=== PATIENT | female | born 1950 | race Caucasian/White ===

== ENCOUNTER 2016-09-16 02:42 | Inpatient (IN) | payer OTHER ==
[2016-09-16] VITALS (7 sets, daily range): BP systolic 126–144; BP diastolic 57–73; PULSE 55–92; TEMP 36.6–37.6; O2SAT 94–100; BMI 22.3
[~2016-09-16] VITALS: Ht 160 cm; Wt 55.9 kg
[2016-09-16] MEDS ORDERED: LORAZEPAM 2 MG/ML 1 ML VIAL ONE (03:05)
[2016-09-16 03:14] LABS: URINE APPEARANCE CLEAR (CLEAR); URINE BILIRUBIN NEG (NEG); URINE COLOR YELLOW; URINE NITRITE NEG (NEG); URINE SPECIFIC GRAVITY 1.021 (1.000-1.030); UROBILINOGEN NEG (NEG)
[2016-09-16 03:20] LABS: MANUAL MICROSCOPIC REQUIRED? NO; REVIEW REQ? NO
[2016-09-16 03:30] LABS: BASO % 0.1 %; BASO ABS # 0.01 K/uL (0-0.2); COMPLETE YES; EOS % 0.7 %; IG% 0.2 %; LYMPH % 12.4 %; LYMPH ABS # 1.08 K/uL (1.2-3.4); MEAN CELL VOLUME 88.6 fL (80-100); MEAN CORPUSCULAR HEMOGLOBIN 29.8 pg (25-34); MEAN CORPUSCULAR HGB CONC 33.7 g/dl (32-36); MEAN PLATELET VOLUME 10.1 fL (7.4-10.4); MONO % 5.3 %; NEUT % 81.3 %; PLATELET COUNT 293 K/uL (130-400); RED BLOOD COUNT 4.29 M/uL (4.2-5.4); WHITE BLOOD COUNT 8.72 K/uL (4.8-10.8)
[2016-09-16 03:35] LABS: BENZODIAZEPINE, URINE NEG (NEG); COCAINE,URINE NEG (NEG); PHENCYCLIDINE, URINE NEG (NEG)
--- NOTE | 2016-09-16 03:47 | EMERGENCY ROOM VISIT NOTE ---
History Report prepared by Suha: Piotr Valero Under the Supervision of: Dr. Shavonne Goodman D.O. First contact with patient: 02:54 Chief Complaint: HYPOGLYCEMIA Stated Complaint: HYPOGLYCEMIA/AGITATION History of Present Illness The patient is a 66 year old female who presents to the Emergency Room via EMS with complaints of altered mental status occurring tonight. As per EMS report, the patient's family found her to be hypoglycemic and unresponsive. When her family attempted to talk to her, she became agitated. The patient has a history of becoming agitated when her sugar becomes too low. She was given two 25 mg doses of Dextrose without any changes in her mental status/agitation. Her blood sugar level did improve. In the Emergency Room, her blood sugar level was 116. HPI is limited secondary to altered mental status. As per family, the patent has never before been altered, agitated, and unresponsive for a prolonged period of time. They had called her about 4 hours ago but she seemed altered. They were not sure if she was sleepy or hypoglycemia. They called back but the patient did not shredder picker which prompted the daughter to check up on the patient. Upon arrival, the patient was agitated and hypoglycemic. Source of History: EMS History Limited By: AMS Onset: tonight Position: other (global) Quality: other (altered mental status) Modifying Factors (Relieving): other (Dextrose ) Review of Systems ROS is limited secondary to altered mental status. Past Medical & Surgical Medical Problems: (1) Altered mental status (2) Elevated troponin (3) Hypoglycemia Family History Patient reports no known family medical history. Social History Marital Status: Housing Status: lives with family Current/Historical Medications Unable to Obtain Active Prescriptions or Reported Meds Allergies Coded Allergies: No Known Allergies (Unverified , 09/16/16) Physical Exam Vital Signs Date Time Temp Pulse Resp B/P (MAP) Pulse Ox O2 Delivery O2 Flow Rate FiO2 09/16/16 05:06 70 26 94 09/16/16 05:01 135/60 09/16/16 04:47 70 21 97 09/16/16 04:30 138/73 09/16/16 04:17 77 16 92 09/16/16 04:12 71 23 97 09/16/16 04:00 147/68 09/16/16 03:42 72 17 95 09/16/16 03:37 157/60 09/16/16 03:12 78 22 09/16/16 02:48 86 09/16/16 02:48 176/78 09/16/16 02:45 36.7 80 17 176/78 94 Room Air Physical Exam General: She has significant altered mental status and will not follow commands , agitated at times. HEENT: Head - normocephalic and atraumatic Pupils are 3 mm and sluggishly reactive to light. Extraocular eye muscles are intact, and sclera are anicteric. Nose - moist nasal mucosa without discharge. Mouth - moist buccal mucosa. Oropharynx is nonerythematous and there is no tonsillar exudate or edema noted. Neck: Supple; no JVD, nuchal rigidity, cervical lymphadenopathy, or auscultated bruits. Heart: Regular rate and rhythm. There is a normal S1 and S2 with no murmurs, clicks, or gallops appreciated. Lungs: Clear to auscultation bilaterally with no wheezes, rales, or rhonchi. Abdomen: Lipoma in the left lower quadrant. Soft, completely nontender, nondistended, with good bowel sounds. There are no palpable pulsatile masses or hepatosplenomegaly. There is no guarding, rigidity, or rebound noted. Extremities: No evidence of cyanosis, clubbing, or edema. There are easily palpable peripheral pulses. Skin: warm and dry with good turgor and no rashes. Neuro: The patient is moving all 4 extremities. She will not follow commands. With any type of verbal painful stimuli, the patient becomes quite agitated. She is pulling at IV lines and monitor cords. Medical Decision & Procedures ER Provider Diagnostic Interpretation: CT results as stated below per my review and radiologist interpretation: CT HEAD No ICH, mass effect, or edema. Preserved lane-white matter differentiation. No evidence of skull fracture. Clear sinuses and mastoid air cells. Radiologist: Myla Payan MD Laboratory Results Test 09/16/16 02:58 09/16/16 03:15 Urine Color YELLOW Urine Appearance CLEAR (CLEAR) Urine pH 6.0 (4.5-7.5) Urine Specific [place] 1.021 (1.000-1.030) Urine Protein NEG (NEG) Urine Glucose (UA) 2+ (NEG) Urine Ketones NEG (NEG) Urine Occult Blood NEG (NEG) Urine Nitrite NEG (NEG) Urine Bilirubin NEG (NEG) Urine Urobilinogen NEG (NEG) Urine Leukocyte Esterase NEG (NEG) Urine Opiates Screen NEG (NEG) Urine Methadone, Qualitative NEG (NEG) Urine Barbiturates NEG (NEG) Urine Phencyclidine (PCP) Level NEG (NEG) Ur Amphetamine/Methamphetamine NEG (NEG) MDMA (Ecstasy) Screen NEG (NEG) Urine Benzodiazepines Screen NEG (NEG) Urine Cocaine Metabolite NEG (NEG) Urine Marijuana (THC) NEG (NEG) Total Bilirubin 0.5 mg/dl (0.2-1) Direct Bilirubin 0.1 mg/dl (0-0.2) Aspartate Amino Transf (AST/SGOT) 24 U/L (15-37) Alanine Aminotransferase (ALT/SGPT) 24 U/L (12-78) Alkaline Phosphatase 58 U/L (45-117) Total Creatine Kinase 217 U/L (26-192) Total Protein 6.9 gm/dl (6.4-8.2) Albumin 3.6 gm/dl (3.4-5.0) Thyroid Stimulating Hormone (TSH) 3.190 uIu/ml (0.300-4.500) Salicylates Level < 1.7 mg/dl (2.8-20) Acetaminophen Level 3 ug/ml (10-30) Ethyl Alcohol mg/dL < 3.0 mg/dl (0-3) Laboratory results per my review. Medications Administered Medications (Trade) Dose Ordered Sig/Benny Route Start Time Stop Time Status Last Admin Dose Admin Lorazepam (Ativan Inj) 2 mg STK-MED ONCE .ROUTE 09/16/16 03:05 09/16/16 03:07 DC 09/16/16 03:22 2 MG ECG Indication: altered mental status Rate (beats per minute): 70 Rhythm: normal sinus Findings: no acute ischemic change, no ectopy ED Course 0254: Past medical records reviewed. The patient was evaluated in room B04B. A complete history and physical exam was performed. Laboratory studies were drawn as above. Blood sugar was normal. The patient went for a stat CT scan of the brain. He twelve-lead EKG was obtained as described above. 0355: The patient remains altered. She will not follow commands. 0405: I had an extensive conversation with the patient's family when they arrived. I discussed findings and results with the patient's family. They verbalized agreement of the treatment plan. The patient will be evaluated for further management and care. 0428: I discussed the patient's case with Dr. Segura, from [facility]. Medical Decision The patient presents to the Emergency Room with complaints of altered mental status. Differential diagnosis includes but is not limited to hypoglycemia, alcohol intoxication, intracranial hemorrhage, acute CVA, acute delirium. Her labs showed salicylate 1.7, acetaminophen 3, normal TSH, glucose 137, BUN 323, creatinine 0.8, troponin 0.120, total CK 217, CKMB 4, urinalysis showed 2+ glucose but otherwise negative, urine tox screen negative, alcohol negative. I attest that I have personally reviewed the patient's current medication list. Patient was found to have an elevated blood pressure but I could not refer her to her primary care physician because the patient is obtunded and has an altered mental status. This is a 66 female patient with insulin-dependent diabetes. It seems that the patient had a hypoglycemic episode as her blood sugar for EMS was 35. This episode may have been prolonged. Despite giving her D10, her blood sugar elevated but her mental status did not improve. She remains altered and agitated at times. CT scan of the brain was unremarkable. Laboratory workup was essentially unremarkable with regards to her altered mental status. I discussed the case with the [facility] and they will evaluate for further management. Consults Time Called: [phone] Consulting Physician: Dr. Segura, from [facility] Returned Call: [phone] I discussed the patient's case with Dr. Segura, from [facility][Note 3]. Impression Primary Impression: Altered mental status Scribe Attestation The scribe's documentation has been prepared under my direction and personally reviewed by me in its entirety. I confirm that the note above accurately reflects all work, treatment, procedures, and medical decision making performed by me. Departure Information Dispostion Being Evaluated By Hospitalist Prescriptions Unable to Obtain Active Prescriptions or Reported Meds Patient Instructions My [facility]
[2016-09-16 03:48] LABS: ALT/SGPT 24 U/L (12-78); AST/SGOT 24 U/L (15-37); BLOOD UREA NITROGEN 23 mg/dl (7-18); BUN/CREATININE RATIO 26.5 (10-20); CALCIUM 8.3 mg/dl (8.5-10.1); CARBON DIOXIDE 29 mmol/L (21-32); CHLORIDE 105 mmol/L (98-107); CREATININE 0.88 mg/dl (0.60-1.20); GLUCOSE 137 mg/dl (70-99); POTASSIUM 3.9 mmol/L (3.5-5.1); SODIUM 140 mmol/L (136-145)
[2016-09-16 04:01] LABS: ALKALINE PHOSPHATASE 58 U/L (45-117); CKMB/CK RATIO 1.8 (0-3.0)
[2016-09-16 04:04] LABS: ACETAMINOPHEN 3 ug/ml (10-30)
--- NOTE | 2016-09-16 06:55 | History and Physical ---
History & Physical Date & Time of Service: Sep 16, 2016 at 06:16 Chief Complaint: Altered Mental Status, Elevated Troponin Primary Care Physician: Murray Bustamante M.D. History of Present Illness Source: family, clinic records, hospital records 66 year old female with PMH of Diabetes, hypoglycemic episodes was brought to the Emergency Room via EMS with complaints of altered mental status. Pt followed with Dr. Bustamante in [place]. History obtained from the daughter because of patient altered mental status and agitation. Daughter said that she called her mother to check on her and patient seems to be confused. Daughter said that when her mother confused it is because her BS is low. she said that she came to check on her and found her BS was in the 35's When her family attempted to talk to her, she became agitated.She was given two 25 mg doses of Dextrose without any changes in her mental status/agitation. As per Daughter the changed in mental status and agitation never lasted for so long. Daughter said that her mother usually back to her baseline once her BS improved. Doesn't seem to have any chest pain, palpitation, fever, pain, and SOB. Past Medical/Surgical History Medical Problems: (1) Hypoglycemia Status: Resolved Family History Patient reports no known family medical history. Social History Smoking Status: Unknown if Ever Smoked Marital Status: Allergies Coded Allergies: No Known Allergies (Unverified , 09/16/16) Home Medications Unable to Obtain Active Prescriptions or Reported Meds Review of Systems Limited review system ( Info obtained from daughter) Constitutional: No fever, No chills Eyes: No worsening of vision, No redness, No discharge ENT: No nasal symptoms, No tinnitus Respiratory: No cough, No sputum Cardiovascular: No chest pain, No orthopnea, No claudication Abdomen: No pain, No nausea Musculoskeletal: No calf pain Genitourinary - Female: No dysuria, No urinary frequency Neurologic: + problem reported (agitation) Psychiatric: No substance abuse Hematologic / Lymphatic: No night sweats Integumentary: No rash Physical Exam Vital Signs Date Time Temp Pulse Resp B/P (MAP) Pulse Ox O2 Delivery O2 Flow Rate FiO2 09/16/16 05:36 75 20 95 09/16/16 05:30 129/59 09/16/16 05:06 70 26 94 09/16/16 05:01 135/60 09/16/16 04:47 70 21 97 09/16/16 04:30 138/73 09/16/16 04:17 77 16 92 09/16/16 04:12 71 23 97 09/16/16 04:00 147/68 09/16/16 03:42 72 17 95 09/16/16 03:37 157/60 09/16/16 03:12 78 22 09/16/16 02:48 86 09/16/16 02:48 176/78 09/16/16 02:45 36.7 80 17 176/78 94 Room Air General Appearance: WD/WN, + pertinent finding (altered mental status and agitation) Head: normocephalic, atraumatic Eyes: normal inspection ENT: hearing grossly normal Neck: no JVD Respiratory/Chest: no respiratory distress, no accessory muscle use Cardiovascular: regular rate, rhythm, no JVD Abdomen/GI: normal bowel sounds, non tender, soft Back: no CVA tenderness Extremities/Musculoskelatal: no calf tenderness, no pedal edema Neurologic/Psych: + pertinent finding (confused, agitated, moves all 4 extremities) Skin: no rash Diagnostics Laboratory Results Results Past 24 Hours Test 09/16/16 02:51 09/16/16 02:58 09/16/16 03:09 09/16/16 03:15 Range/Units Bedside Glucose 116 119 70-90 mg/dl Urine Color YELLOW Urine Appearance CLEAR CLEAR Urine pH 6.0 4.5-7.5 Urine Specific [place] 1.021 1.000-1.030 Urine Protein NEG NEG Urine Glucose (UA) 2+ NEG Urine Ketones NEG NEG Urine Occult Blood NEG NEG Urine Nitrite NEG NEG Urine Bilirubin NEG NEG Urine Urobilinogen NEG NEG Urine Leukocyte Esterase NEG NEG Urine Opiates Screen NEG NEG Urine Methadone, Qualitative NEG NEG Urine Barbiturates NEG NEG Urine Phencyclidine (PCP) Level NEG NEG Ur Amphetamine/Methamphetamine NEG NEG MDMA (Ecstasy) Screen NEG NEG Urine Benzodiazepines Screen NEG NEG Urine Cocaine Metabolite NEG NEG Urine Marijuana (THC) NEG NEG White Blood Count 8.72 4.8-10.8 K/uL Red Blood Count 4.29 4.2-5.4 M/uL Hemoglobin 12.8 12.0-16.0 g/dL Hematocrit 38.0 37-47 % Mean Corpuscular Volume 88.6 80-100 fL Mean Corpuscular Hemoglobin 29.8 25-34 pg Mean Corpuscular Hemoglobin Concent 33.7 32-36 g/dl Platelet Count 293 130-400 K/uL Mean Platelet Volume 10.1 7.4-10.4 fL Neutrophils (%) (Auto) 81.3 % Lymphocytes (%) (Auto) 12.4 % Monocytes (%) (Auto) 5.3 % Eosinophils (%) (Auto) 0.7 % Basophils (%) (Auto) 0.1 % Neutrophils # (Auto) 7.09 1.4-6.5 K/uL Lymphocytes # (Auto) 1.08 1.2-3.4 K/uL Monocytes # (Auto) 0.46 0.11-0.59 K/uL Eosinophils # (Auto) 0.06 0-0.5 K/uL Basophils # (Auto) 0.01 0-0.2 K/uL RDW Standard Deviation 43.1 36.4-46.3 fL RDW Coefficient of Variation 13.4 11.5-14.5 % Immature Granulocyte % (Auto) 0.2 % Immature Granulocyte # (Auto) 0.02 0.00-0.02 K/uL Sodium Level 140 136-145 mmol/L Potassium Level 3.9 3.5-5.1 mmol/L Chloride Level 105 98-107 mmol/L Carbon Dioxide Level 29 21-32 mmol/L Anion Gap 6.0 3-11 mmol/L Blood Urea Nitrogen 23 7-18 mg/dl Creatinine 0.88 0.60-1.20 mg/dl Estimated GFR () 80.5 Estimated GFR (Non- 69.4 BUN/Creatinine Ratio 26.5 10-20 Random Glucose 137 70-99 mg/dl Calcium Level 8.3 8.5-10.1 mg/dl Total Bilirubin 0.5 0.2-1 mg/dl Direct Bilirubin 0.1 0-0.2 mg/dl Aspartate Amino Transf (AST/SGOT) 24 15-37 U/L Alanine Aminotransferase (ALT/SGPT) 24 12-78 U/L Alkaline Phosphatase 58 45-117 U/L Total Creatine Kinase 217 26-192 U/L Creatine Kinase MB 4.0 0.5-3.6 ng/ml Creatine Kinase MB Ratio 1.8 0-3.0 Troponin I 0.120 0-0.045 ng/ml Total Protein 6.9 6.4-8.2 gm/dl Albumin 3.6 3.4-5.0 gm/dl Thyroid Stimulating Hormone (TSH) 3.190 0.300-4.500 uIu/ml Salicylates Level < 1.7 2.8-20 mg/dl Acetaminophen Level 3 10-30 ug/ml Ethyl Alcohol mg/dL < 3.0 0-3 mg/dl Test 09/16/16 04:07 09/16/16 05:39 Range/Units Bedside Glucose 135 194 70-90 mg/dl Diagnostic Radiology CT head showed no acute abnormality, mass effect, or edema. Preserved lane- white matter differentiation. No evidence of skull fracture. Clear sinuses and mastoid air cells. Impression Assessment and Plan Altered Mental Status/ Agitation Possible related to Hypoglycemia vs delirium CT head negative for any intracranial hemorrhage Will do neuro check Will avoid Benzo for now Consider Haldol if symptoms worsening fall precaution Hypoglycemia BS improved Continue monitor BS closely If BS drops, will start on gentle D5 water Elevated troponin Denies any chest pain as per Daughter troponin on admission 0.120 EKK showed no ischemic changes will follow serial CM Cardiology consult if troponin trending up or any change on EKG Will monitor in telemetry DM Hold DM med will consult pharmacy for glycemic episodes will repeat EKG DVT px on Lovenox subq CODE STATUS FULL CODE DISPOSITION Call pharmacy or pcp in am to get his medication list Level of Care Telemetry Resuscitation Status FULL RESUSCITATION VTE Prophylaxis VTE Risk Assessment Done? Y/N: Yes Risk Level: Moderate Given or contraindicated: Enoxaparin (Lovenox)SQ
[2016-09-16] MEDS ORDERED: GLUCOSE 10 TABS/TUBE PO PRN (07:00)
[2016-09-16] MEDS ORDERED: DEXTROSE 50% 50 ML SYR IV PRN (07:00)
[2016-09-16] MEDS ORDERED: GLUCAGON FOR INJ 1 MG VIAL SQ PRN (07:00)
[2016-09-16] MEDS ORDERED: GLUCOSE 40% GEL 15 GM TUBE PO PRN (07:00)
[2016-09-16] MEDS ORDERED: SODIUM CHLORIDE 0.9% 1000ML 1,000 ML IV SCH (07:00)
[2016-09-16] MEDS ORDERED: PHARMACY GLYCEMIC MGMT CONSULT PRN (07:00)
--- NOTE | 2016-09-16 07:04 | DIAGNOSTIC IMAGING REPORT ---
CT SCAN OF THE BRAIN WITHOUT IV CONTRAST CLINICAL HISTORY: Change in mental status. COMPARISON STUDY: No priors. TECHNIQUE: Unenhanced axial CT scan of the brain is performed from the vertex to the skull base. CT DOSE: 1228.53 mGy.cm FINDINGS: Brain parenchyma: There are age-related involutional changes noting minimal subcortical and periventricular microangiopathic change. There is no hemorrhage, mass effect, or evidence of acute territorial ischemia by CT criteria. Vel[place]-white matter is preserved. No extra-axial fluid collection is seen. Ventricles, sulci, cisterns: Prominent secondary to involutional change. Intracranial vasculature: Normal as visualized. Calvarium: Unremarkable. Sinuses and mastoids: The visualized paranasal sinuses are clear. The mastoid air cells are well pneumatized. Orbits: The bony orbits are grossly intact. IMPRESSION: There is no hemorrhage, mass effect, or evidence of acute territorial ischemia by CT criteria. Electronically signed by: Jean-iPerre Maynard M.D. 09/16/2016 7:03 AM Dictated Date/Time: 09/16/2016 7:01 AM
[2016-09-16] MEDS ORDERED: PATIENT'S ALLERGY INFO NEEDS ENTERED SCH (07:15)
[2016-09-16] MEDS ORDERED: HALOPERIDOL LACTATE 5 MG/ML 1 ML VIAL IM STA ×2 (07:29→12:09)
[2016-09-16] MEDS ORDERED: HALOPERIDOL LACTATE 5 MG/ML 1 ML VIAL ONE (07:32)
[2016-09-16 07:43] LABS: PARTIAL THROMBOPLASTIN RATIO 0.9; PROTHROMBIN TIME (PATIENT) 10.7 SECONDS (9.0-12.0)
--- NOTE | 2016-09-16 08:40 | Progress Note ---
Medicine Progress Note Date & Time of Visit: Sep 16, 2016 at 08:29. Subjective history obtained from patient's daughter Sandra as patient was disoriented, confused she does not have complete past medical history or medication list, records being obtained from PCP and [facility] as far as Sandra knows, patient has DM, HTN, non obstructive CAD and takes Insulin she has episodes of confusion with hypoglycemia, but not this severe and prolonged no history of seizure, mood disorders RN Hammad messaged me as patient was thrashing around the bed, agitated Haldol 5mg IV ordered on exam, patient seen sleeping ,easily rousable, mostly calm but occasional would try to sit up asking "where am I? what's going on?" can state her name with prodding otherwise, disoriented denies headache, dizziness, nausea, chest pain, dyspnea, abdominal pain, changes with urination/BM Objective Last 8 Hrs Date Time Temp Pulse Resp B/P (MAP) Pulse Ox O2 Delivery O2 Flow Rate FiO2 09/16/16 06:32 36.9 77 16 133/57 94 Room Air 09/16/16 05:36 75 20 95 09/16/16 05:30 129/59 09/16/16 05:06 70 26 94 09/16/16 05:01 135/60 09/16/16 04:47 70 21 97 09/16/16 04:30 138/73 09/16/16 04:17 77 16 92 09/16/16 04:12 71 23 97 09/16/16 04:00 147/68 09/16/16 03:42 72 17 95 09/16/16 03:37 157/60 09/16/16 03:12 78 22 09/16/16 02:48 86 09/16/16 02:48 176/78 09/16/16 02:45 36.7 80 17 176/78 94 Room Air Physical Exam: General- not oriented, speaks in sentences with no effort, not in distress Head- atraumatic Eyes- PERRL, EOMI, anicteric Neck- supple, no JVD, no adenopathy, no thyromegaly Lungs- clear breath sounds bilaterally Heart- regular rhythm; no murmur, normal rate Abdomen- normal bowel sounds, soft, nontender Extremities- no pretibial edema, no calf tenderness; peripheral pulses intact Neuro- alert, not oriented; PERRL, EOMI; no facial palsy; no dysarthria;can move all extremities equally Skin- warm & dry Laboratory Results: Last 24 Hours Test 09/16/16 02:51 09/16/16 02:58 09/16/16 03:09 09/16/16 03:15 Bedside Glucose 116 mg/dl 119 mg/dl Urine Color YELLOW Urine Appearance CLEAR Urine pH 6.0 Urine Specific [place] 1.021 Urine Protein NEG Urine Glucose (UA) 2+ Urine Ketones NEG Urine Occult Blood NEG Urine Nitrite NEG Urine Bilirubin NEG Urine Urobilinogen NEG Urine Leukocyte Esterase NEG Urine Opiates Screen NEG Urine Methadone, Qualitative NEG Urine Barbiturates NEG Urine Phencyclidine (PCP) Level NEG Ur Amphetamine/Methamphetamine NEG MDMA (Ecstasy) Screen NEG Urine Benzodiazepines Screen NEG Urine Cocaine Metabolite NEG Urine Marijuana (THC) NEG White Blood Count 8.72 K/uL Red Blood Count 4.29 M/uL Hemoglobin 12.8 g/dL Hematocrit 38.0 % Mean Corpuscular Volume 88.6 fL Mean Corpuscular Hemoglobin 29.8 pg Mean Corpuscular Hemoglobin Concent 33.7 g/dl Platelet Count 293 K/uL Mean Platelet Volume 10.1 fL Neutrophils (%) (Auto) 81.3 % Lymphocytes (%) (Auto) 12.4 % Monocytes (%) (Auto) 5.3 % Eosinophils (%) (Auto) 0.7 % Basophils (%) (Auto) 0.1 % Neutrophils # (Auto) 7.09 K/uL Lymphocytes # (Auto) 1.08 K/uL Monocytes # (Auto) 0.46 K/uL Eosinophils # (Auto) 0.06 K/uL Basophils # (Auto) 0.01 K/uL RDW Standard Deviation 43.1 fL RDW Coefficient of Variation 13.4 % Immature Granulocyte % (Auto) 0.2 % Immature Granulocyte # (Auto) 0.02 K/uL Sodium Level 140 mmol/L Potassium Level 3.9 mmol/L Chloride Level 105 mmol/L Carbon Dioxide Level 29 mmol/L Anion Gap 6.0 mmol/L Blood Urea Nitrogen 23 mg/dl Creatinine 0.88 mg/dl Estimated GFR () 80.5 Estimated GFR (Non- 69.4 BUN/Creatinine Ratio 26.5 Random Glucose 137 mg/dl Calcium Level 8.3 mg/dl Total Bilirubin 0.5 mg/dl Direct Bilirubin 0.1 mg/dl Aspartate Amino Transf (AST/SGOT) 24 U/L Alanine Aminotransferase (ALT/SGPT) 24 U/L Alkaline Phosphatase 58 U/L Total Creatine Kinase 217 U/L Creatine Kinase MB 4.0 ng/ml Creatine Kinase MB Ratio 1.8 Troponin I 0.120 ng/ml Total Protein 6.9 gm/dl Albumin 3.6 gm/dl Thyroid Stimulating Hormone (TSH) 3.190 uIu/ml Salicylates Level < 1.7 mg/dl Acetaminophen Level 3 ug/ml Ethyl Alcohol mg/dL < 3.0 mg/dl Test 09/16/16 04:07 09/16/16 05:39 09/16/16 06:21 09/16/16 06:49 Bedside Glucose 135 mg/dl 194 mg/dl 222 mg/dl Creatine Kinase MB Ratio Test 09/16/16 07:12 09/16/16 07:52 09/16/16 08:06 Prothrombin Time 10.7 SECONDS Prothromb Time International Ratio 1.0 Activated Partial Thromboplast Time 24.1 SECONDS Partial Thromboplastin Ratio 0.9 Creatine Kinase MB 3.4 ng/ml Bedside Glucose 188 mg/dl Date/Time Source Procedure Growth Status 09/16/16 07:52 Blood Blood Culture Pending Francisca Batch 09/16/16 07:52 Blood Blood Culture Pending Francisca Batch Assessment & Plan 66 year old female with history of DM on insulin, hypertension,CAD presenting with altered mental status and hypoglycemia ALTERED MENTAL STATUS, POSSIBLE ENCEPHALOPATHY FROM: ACUTE DELIRIUM in the setting of hypoglycemia PRN Haldol, IV fluids Neurochecks R/O INFECTION blood, urine cultures no fever, WBC, UA clean hold off on antibiotics POSSIBLE POST ICTAL EPISODE FROM HYPOGLYCEMIA INDUCED SEIZURE? check EEG R/O CVA check MRI brain will consult Neuro ELEVATED CARDIAC MARKERS non obstructive CAD per daughter, s/p Cardiac Cath 2014 EKG non specific t wave changes in anteroseptal leads check Echo DM on Insulin Pharmacy consulted HISTORY OF HTN obtaining records from PCP and [facility] DVT PROPHYLAXIS SCDs Lovenox CODE STATUS FULL CODE DISPOSITION pending usually lives with Current Inpatient Medications: Current Inpatient Medications Medications (Trade) Dose Ordered Sig/Benny Route Start Time Stop Time Status Last Admin Dose Admin Enoxaparin Sodium (Lovenox Inj) 40 mg Q24H SC 09/16/16 05:15 10/16/16 05:14 UNV Sodium Chloride 1,000 ml @ 100 mls/hr Q10H IV 09/16/16 07:00 09/16/16 16:59 Insulin Aspart (novoLOG ASPART) SLIDING SCALE If C... ACHS SC 09/16/16 07:00 10/16/16 06:59 Glucose (Glucose 40% Gel) 15-30 GRAMS 15 GRAMS... UD PRN PO 09/16/16 07:00 10/16/16 06:59 Glucose (Glucose Chew Tab) 4-8 Tablets 4 Tabl... UD PRN PO 09/16/16 07:00 10/16/16 06:59 Dextrose (Dextrose 50% 50ML Syringe) 25-50ML OF 50% DW IV FOR... UD PRN IV 09/16/16 07:00 10/16/16 06:59 Glucagon (Glucagon Inj) 1 mg UD PRN SQ 09/16/16 07:00 10/16/16 06:59 Miscellaneous Information (Consult Glycemic Management Pharmacy) 1 ea UD PRN N/A 09/16/16 07:00 10/16/16 06:59 Miscellaneous Information (Patient'S Allergy Info Needs Entered) 1 ea Q30M N/A 09/16/16 07:15 10/16/16 07:14
[2016-09-16] MEDS ORDERED: PNEUMOCOCCAL ADMINISTRATION CHARGE ONE (09:00)
[2016-09-16] MEDS ORDERED: PNEUMOCOCCAL POLYSACCHARIDES 25 MCG/0.5 ML VIAL/SYR IM. ONE (09:00)
[2016-09-16] MEDS: INSULIN ASPART 100 UNITS/ML 3 ML PEN SC SCH ×3 (09:30→20:44)
--- NOTE | 2016-09-16 09:44 | Pharmacy Progress Note ---
Glycemic Control Intl Consult Date of Service Sep 16, 2016. Scope Glycemic Pharmacist consulted by Dr. Segura on 09/16/16 for glycemic control and to write orders per [facility] inpatient glycemic control protocol Objective Weight (Kilograms): 57.200 Accuchecks BSG (last 24hrs): Test 09/16/16 02:51 09/16/16 03:09 09/16/16 03:15 09/16/16 04:07 Bedside Glucose 116 mg/dl (70-90) 119 mg/dl (70-90) 135 mg/dl (70-90) Random Glucose 137 mg/dl (70-99) Test 09/16/16 05:39 09/16/16 06:21 09/16/16 08:06 Bedside Glucose 194 mg/dl (70-90) 222 mg/dl (70-90) 188 mg/dl (70-90) Laboratory Data (last 24hrs) Test 09/16/16 03:15 Anion Gap 6.0 mmol/L BUN/Creatinine Ratio 26.5 Blood Urea Nitrogen 23 mg/dl Creatinine 0.88 mg/dl Potassium Level 3.9 mmol/L Sodium Level 140 mmol/L White Blood Count 8.72 K/uL Red Blood Count 4.29 M/uL Hemoglobin 12.8 g/dL Hematocrit 38.0 % Mean Corpuscular Volume 88.6 fL Mean Corpuscular Hemoglobin 29.8 pg Mean Corpuscular Hemoglobin Concent 33.7 g/dl Platelet Count 293 K/uL Mean Platelet Volume 10.1 fL Neutrophils (%) (Auto) 81.3 % Lymphocytes (%) (Auto) 12.4 % Monocytes (%) (Auto) 5.3 % Eosinophils (%) (Auto) 0.7 % Basophils (%) (Auto) 0.1 % Neutrophils # (Auto) 7.09 K/uL Lymphocytes # (Auto) 1.08 K/uL Monocytes # (Auto) 0.46 K/uL Eosinophils # (Auto) 0.06 K/uL Basophils # (Auto) 0.01 K/uL Recent Pertinent Medications Outpatient Anti-diabetic Regimen: * Patient and family unable to report home insulin doses. The following doses were found via Dr. Null and may not be up to date. * Lantus 6 units qam, 5 units qpm * Humalog 5 units with breakfast, 4 units with lunch, 5 units with dinner * A1c - ordered for 09/17/16 Risk Factors for Insulin Resistance: * unknown at this time Assessment & Plan ASSESSMENT: * 66 yr old diabetic female admitted with AMS, possible encephalopathy (r/o CVA vs. r/o infection vs. acute delirium vs. hypoglycemic induced seizure). * Outpatient glycemic control is unknown at this time. Patient is unable to report home medications and doses. I attempted to contact patient's but was unable to reach him. I was able to reach her daughter, Grazyna, but she was unable to provide any additional information regarding home insulin doses. I did request that she contact the pharmacy if she is able to obtain patient's medications. According to Dr. Null, the patient uses ~25 units of insulin per day (note - dosing info may not be accurate). * Will be conservative with basal insulin d/t unknown needs at this time, NPO status, lack of risk factors for insulin resistance, and mention of recent hypoglycemic events in H&P * Will start patient on correctional insulin with Novolog - based dose on weight and stress of 2. * ADA & AACE recommend a goal blood sugar range 140-180 mg/dl for the majority of critically ill & non-critically ill patients. However, more stringent targets may be selected in individual cases. PLAN FOR INPATIENT GLYCEMIC CONTROL: * Basal insulin -Lantus per scale BID * 0 units if BSG is less than 120 mg/dL * 5 units if BSG is 120 mg/dL or more * Correctional Insulin with NOVOLOG per scale Q6hrs while NPO * Goal Range: Low 140 mg/dL - High 180 mg/dL * Correction Factor: 40 mg/dL/unit * Nutritional / Prandial insulin per carb ratio of 1 unit per 14 grams CHO consumed * Please note that the plan above was derived based on current level of insulin resistance and hospital stress. These recommendations are appropriate for inpatient admission only. Plan of care upon discharge will need to be reassessed to avoid potential outpatient hypo/hyperglycemia. Thank you.
[2016-09-16] MEDS ORDERED: LORAZEPAM 2 MG/ML 1 ML VIAL IV PRN (11:15)
[2016-09-16] MEDS: ENOXAPARIN 40 MG/0.4 ML SYR SC SCH (11:32)
[2016-09-16] MEDS ORDERED: INSULIN GLARGINE SOLOSTAR 100 UNITS/ML 3 ML PEN SC ONE (12:30)
--- NOTE | 2016-09-16 14:04 | DIAGNOSTIC IMAGING REPORT ---
ORBIT RADIOGRAPHS 2 VIEWS HISTORY: pre-MRI screening. COMPARISON: None. FINDINGS: There are no radiopaque foreign bodies identified within the orbits. IMPRESSION: No radiopaque foreign bodies identified within the orbits. Electronically signed by: Madan Orozco M.D. 09/16/2016 2:03 PM Dictated Date/Time: 09/16/2016 2:02 PM
--- NOTE | 2016-09-16 15:49 | Neurology Consultation ---
Neurology Consultation Date of Consultation: Sep 16, 2016. Attending Physician: Jose D Chávez MD Primary Care Physician: Murray Bustamante M.D. Reason for Consultation: mental status change History of Present Illness Source: patient, family Linda is a 66 year old female with PMH of DM, with hypoglycemic episodes, HTN, hypothyroid, DL, osteoporosis. She was brought to the ED EMS with complaints of altered mental status. Daughter said that she called her mother to check on her and patient seems to be confused. Daughter said that when her mother confused it is because her BS is low. she said that she came to check on her and found her BS was in the 35's When her family attempted to talk to her, she became agitated.She was given two 25 mg doses of Dextrose without any changes in her mental status/agitation. As per Daughter the changed in mental status and agitation never lasted for so long. Daughter said that her mother usually back to her baseline once her BS improved. She was sent down for an MRI but was unable to hold still for the imaging. She is currently thrashing in bed and minimally cooperative. when asked if she has pain she states no. Past Medical/Surgical History Medical Problems: (1) Acute delirium Status: Acute Social History Marital Status: Housing Status: lives with family Allergies Coded Allergies: No Known Allergies (Unverified , 09/16/16) Current Inpatient Medications Current Inpatient Medications Medications (Trade) Dose Ordered Sig/Benny Route Start Time Stop Time Status Last Admin Dose Admin Enoxaparin Sodium (Lovenox Inj) 40 mg QAM SC 09/16/16 09:30 10/16/16 09:29 09/16/16 11:32 40 MG Sodium Chloride 1,000 ml @ 100 mls/hr Q10H IV 09/16/16 07:00 09/16/16 16:59 09/16/16 07:33 100 MLS/HR Insulin Aspart (novoLOG ASPART) SLIDING SCALE If C... ACHS SC 09/16/16 07:00 10/16/16 06:59 09/16/16 11:37 1 UNITS Glucose (Glucose 40% Gel) 15-30 GRAMS 15 GRAMS... UD PRN PO 09/16/16 07:00 10/16/16 06:59 Glucose (Glucose Chew Tab) 4-8 Tablets 4 Tabl... UD PRN PO 09/16/16 07:00 10/16/16 06:59 Dextrose (Dextrose 50% 50ML Syringe) 25-50ML OF 50% DW IV FOR... UD PRN IV 09/16/16 07:00 10/16/16 06:59 Glucagon (Glucagon Inj) 1 mg UD PRN SQ 09/16/16 07:00 10/16/16 06:59 Miscellaneous Information (Consult Glycemic Management Pharmacy) 1 ea UD PRN N/A 09/16/16 07:00 10/16/16 06:59 Miscellaneous Information (Patient'S Allergy Info Needs Entered) 1 ea Q30M N/A 09/16/16 07:15 10/16/16 07:14 Lorazepam (Ativan Inj) 0.5 mg DAILY PRN IV 09/16/16 11:15 09/18/16 11:14 09/16/16 11:22 0.5 MG Insulin Glargine (Lantus Solostar Pen) SEE PROTOCOL TEXT ... BID SC 09/16/16 21:00 10/16/16 20:59 Physical Exam Vital Signs (Past 24 Hrs): Date Time Temp Pulse Resp B/P (MAP) Pulse Ox O2 Delivery O2 Flow Rate FiO2 09/16/16 12:00 Room Air 09/16/16 10:59 37.4 55 14 144/73 (96) 97 Room Air 09/16/16 08:00 Room Air 09/16/16 06:32 36.9 77 16 133/57 94 Room Air 09/16/16 05:36 75 20 95 09/16/16 05:30 129/59 09/16/16 05:06 70 26 94 09/16/16 05:01 135/60 09/16/16 04:47 70 21 97 09/16/16 04:30 138/73 09/16/16 04:17 77 16 92 09/16/16 04:12 71 23 97 09/16/16 04:00 147/68 09/16/16 03:42 72 17 95 09/16/16 03:37 157/60 09/16/16 03:12 78 22 09/16/16 02:48 86 09/16/16 02:48 176/78 09/16/16 02:45 36.7 80 17 176/78 94 Room Air Physical Exam: Constitutional: appearance nourished thin pale Ears, Nose, Mouth and Throat: mucous membranes moist, no injection and skin normal, eyes normal Cardiovascular: normal S-1 and S-2 and regular rate and rhythm Respiratory: clear to auscultation (CTA) and no rales, rhonchi or wheeze Musculoskeletal: no peripheral edema and good distal pulses Skin: no stigmata of neurocutaneous disease noted and normal and intact Eyes: pupils equal, round and reactive to light (PERRL) NEUROLOGIC EXAMINATION: Mental status: lethargic Oriented to person Speech clear but minimally verbal Cranial Nerves unable to assess Reflexes: Deep tendon reflexes were symmetrical and graded 2/5. Plantar responses were flexor. Gait/Stance: Posture lying in bed thrashing . Strength: biceps triceps hand neck band maker 5/5 bilaterally, hip flex ext 5/5 Laboratory Results Past 24 Hours: 09/16/16 03:15 Red Blood Count 4.29, Mean Corpuscular Volume 88.6, Mean Corpuscular Hemoglobin 29.8, Mean Corpuscular Hemoglobin Concent 33.7, Mean Platelet Volume 10.1, Neutrophils (%) (Auto) 81.3, Lymphocytes (%) (Auto) 12.4, Monocytes (%) (Auto) 5.3, Eosinophils (%) (Auto) 0.7, Basophils (%) (Auto) 0.1, Neutrophils # (Auto) 7.09, Lymphocytes # (Auto) 1.08, Monocytes # (Auto) 0.46, Eosinophils # (Auto) 0.06, Basophils # (Auto) 0.01 09/16/16 03:15 Test 09/16/16 02:58 09/16/16 03:15 09/16/16 07:12 09/16/16 08:56 Urine Color YELLOW Urine Appearance CLEAR (CLEAR) Urine pH 6.0 (4.5-7.5) Urine Specific Nelson 1.021 (1.000-1.030) Urine Protein NEG (NEG) Urine Glucose (UA) 2+ (NEG) Urine Ketones NEG (NEG) Urine Occult Blood NEG (NEG) Urine Nitrite NEG (NEG) Urine Bilirubin NEG (NEG) Urine Urobilinogen NEG (NEG) Urine Leukocyte Esterase NEG (NEG) Urine Opiates Screen NEG (NEG) Urine Methadone, Qualitative NEG (NEG) Urine Barbiturates NEG (NEG) Urine Phencyclidine (PCP) Level NEG (NEG) Ur Amphetamine/Methamphetamine NEG (NEG) MDMA (Ecstasy) Screen NEG (NEG) Urine Benzodiazepines Screen NEG (NEG) Urine Cocaine Metabolite NEG (NEG) Urine Marijuana (THC) NEG (NEG) White Blood Count 8.72 K/uL (4.8-10.8) Red Blood Count 4.29 M/uL (4.2-5.4) Hemoglobin 12.8 g/dL (12.0-16.0) Hematocrit 38.0 % (37-47) Mean Corpuscular Volume 88.6 fL (80-100) Mean Corpuscular Hemoglobin 29.8 pg (25-34) Mean Corpuscular Hemoglobin Concent 33.7 g/dl (32-36) Platelet Count 293 K/uL (130-400) Mean Platelet Volume 10.1 fL (7.4-10.4) Neutrophils (%) (Auto) 81.3 % Lymphocytes (%) (Auto) 12.4 % Monocytes (%) (Auto) 5.3 % Eosinophils (%) (Auto) 0.7 % Basophils (%) (Auto) 0.1 % Neutrophils # (Auto) 7.09 K/uL (1.4-6.5) Lymphocytes # (Auto) 1.08 K/uL (1.2-3.4) Monocytes # (Auto) 0.46 K/uL (0.11-0.59) Eosinophils # (Auto) 0.06 K/uL (0-0.5) Basophils # (Auto) 0.01 K/uL (0-0.2) RDW Standard Deviation 43.1 fL (36.4-46.3) RDW Coefficient of Variation 13.4 % (11.5-14.5) Immature Granulocyte % (Auto) 0.2 % Immature Granulocyte # (Auto) 0.02 K/uL (0.00-0.02) Anion Gap 6.0 mmol/L (3-11) Estimated GFR () 80.5 Estimated GFR (Non- 69.4 BUN/Creatinine Ratio 26.5 (10-20) Calcium Level 8.3 mg/dl (8.5-10.1) Total Bilirubin 0.5 mg/dl (0.2-1) Direct Bilirubin 0.1 mg/dl (0-0.2) Aspartate Amino Transf (AST/SGOT) 24 U/L (15-37) Alanine Aminotransferase (ALT/SGPT) 24 U/L (12-78) Alkaline Phosphatase 58 U/L (45-117) Total Creatine Kinase 217 U/L (26-192) Total Protein 6.9 gm/dl (6.4-8.2) Albumin 3.6 gm/dl (3.4-5.0) Thyroid Stimulating Hormone (TSH) 3.190 uIu/ml (0.300-4.500) Salicylates Level < 1.7 mg/dl (2.8-20) Acetaminophen Level 3 ug/ml (10-30) Ethyl Alcohol mg/dL < 3.0 mg/dl (0-3) Prothrombin Time 10.7 SECONDS (9.0-12.0) Prothromb Time International Ratio 1.0 (0.9-1.1) Activated Partial Thromboplast Time 24.1 SECONDS (21.0-31.0) Partial Thromboplastin Ratio 0.9 Ammonia 12.0 umol/L (11-32) Creatine Kinase MB 5.3 ng/ml (0.5-3.6) Creatine Kinase MB Ratio (0-3.0) Test 09/16/16 11:35 09/16/16 15:13 Bedside Glucose 211 mg/dl (70-90) Imaging CT head- There is no hemorrhage, mass effect, or evidence of acute territorial ischemia by CT criteria. Impression 66 year old with acute confusion Plan 1. work up started for infectious etiology 2. MRI with and without contrast r/o stroke or other structure lesions- unable to tolerate 3. continue glucose control and HTN- this is likely a prolonged hypoglycemic event 4. keep NPO until able to cooperate 5. if source is not found would do an LP 6. family information is very helpful 7. if not waking tomorrow repeat CT head I have seen and discussed above patient with Dr Karla Chiu, neurology Pt seen and examined. Discussed with daughter. 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 Pt lives alone during the week with frequent checks from her daughter. When pt spoke to her at 1030pm daughter thought she might be hypoglycemic, but then thought mother tired. Called her 1 hour later, no answer. Pt found in bed, diaphoretic, unresponsive, breathing deeply, as she has typically looked with hypoglycemia. Her BS was 37, glucose was not administered as pt was not awake enough to take by mouth. Pt did not respond with return of consciousness inspite of tx by EMT. She remains uncharacteristically agitated, confused. CT, labs reviewed. Troponin elevated. Pt has been sedated with haldol and benzos for agitation and pre-MRI sedation. MRI was not able to be completed. Pt BS was prior to my exam but with tx was approx 140 . Pt sleepy alternating with agitated. Able to state name, otherwise unable to follow commands. Head NCAT, edentulous, neck supple. NO spinal trauma or deformity. Perrl, unable to vis optic nerves secondary to noncoop. Perhaps mild dec L NLF. Moves all fours symmetrically, with nl tones. Symmetric reflexes , toes down. Imp: Global encephalopathy with essentially non-focal exam. Most likely represents the effect of protracted hypoglycemia. EEG no evidence of sz. NO evidence of infection and suddenness of onset argues against an infectious etiology. P Attempt MRI, (eval for stroke) if unable and pt not improving in am would do a CT head. SYD Chiu MD
[2016-09-16] MEDS ORDERED: NURSING VERBAL MED ORDER ONE (18:15)
[2016-09-16] MEDS: D5NSS + 20MEQ KCL 1,000 ML IV SCH (19:07)
[2016-09-16] MEDS: INSULIN GLARGINE SOLOSTAR 100 UNITS/ML 3 ML PEN SC SCH (20:45)
--- NOTE | 2016-09-16 21:38 | ELECTROENCEPHALOGRAPH REPORT ---
REFERRING PHYSICIAN: Dr. Jose D Chávez. CLINICAL DIAGNOSIS: Change in mental status, question non-convulsive seizures. EEG DIAGNOSIS: Somewhat technically limited study due to muscle movement artifact, but grossly normal during brief duration of wakefulness. DESCRIPTION OF TRACING: This EEG was done as a bedside recording on a patient who by video analysis had almost continuous head and upper body movements. Despite this, there are relatively few significant muscle or movement artifacts on the EEG. No activation procedures were utilized and drowsiness and light sleep are not clearly evident. Under these conditions, there is evidence for a background rhythm in the alpha range of about 10 Hz of maximum frequency and 30 microvolts of maximum amplitude. This is maximum in posterior head regions and bilaterally symmetrical. Polymorphic mid-slightly lower frequency theta activity of modest voltage is seen over all head regions without clear focal or regional predominance. Anterior head region maximum bilaterally symmetrical beta activity is likely present, but is difficult to dissect out from the muscle artifact which is seen bifrontally. At no time during the waking tracing is there a clear evidence for potentially epileptogenic activity in the form of polyspike or spike wave bursts, focal sharp waves or focal spikes. INTERPRETATION: This EEG, despite the muscle movement artifacts is essentially normal during wakefulness without evidence for a clearcut focal or generalized encephalopathy and without evidence for potentially epileptogenic activity. MTDD
[2016-09-17] VITALS (8 sets, daily range): BP systolic 130–168; BP diastolic 62–76; PULSE 58–74; TEMP 36.8–37.5; O2SAT 95–98
[2016-09-17] MEDS: D5NSS + 20MEQ KCL 1,000 ML IV SCH ×2 (04:04→18:03)
[2016-09-17] MEDS: INSULIN ASPART 100 UNITS/ML 3 ML PEN SC SCH ×6 (04:04→21:16)
[2016-09-17 07:41] LABS: ESTIMATED AVERAGE GLUCOSE 146 mg/dl; HA1C FLAG Normal (Normal)
[2016-09-17 08:24] LABS: BASO % 0.4 %; BASO ABS # 0.02 K/uL (0-0.2); COMPLETE YES; EOS % 4.1 %; HEMATOCRIT 36.8 % (37-47); IG% 0.2 %; LYMPH % 33.3 %; LYMPH ABS # 1.63 K/uL (1.2-3.4); MEAN CELL VOLUME 89.3 fL (80-100); MEAN CORPUSCULAR HEMOGLOBIN 28.6 pg (25-34); MEAN CORPUSCULAR HGB CONC 32.1 g/dl (32-36); MONO % 13.9 %; NEUT % 48.1 %; PLATELET COUNT 255 K/uL (130-400); RED BLOOD COUNT 4.12 M/uL (4.2-5.4)
[2016-09-17] MEDS: ENOXAPARIN 40 MG/0.4 ML SYR SC SCH ×2 (09:00→09:17)
[2016-09-17 09:01] LABS: BUN/CREATININE RATIO 16.4 (10-20); CALCIUM 7.9 mg/dl (8.5-10.1); CREATININE 0.68 mg/dl (0.60-1.20); POTASSIUM 3.9 mmol/L (3.5-5.1)
[2016-09-17] MEDS: INSULIN GLARGINE SOLOSTAR 100 UNITS/ML 3 ML PEN SC SCH ×2 (09:15→21:17)
--- NOTE | 2016-09-17 09:34 | DIAGNOSTIC IMAGING REPORT ---
Brain MRI WITHOUT CONTRAST HISTORY: Mental status change r/o cava TECHNIQUE: Multiplanar multisequence MRI of the brain was performed without the use of contrast. COMPARISON STUDY: None. FINDINGS: There are no areas of restricted diffusion to suggest acute infarction. The midline structures are intact. The paranasal sinuses are clear. The mastoid air cells are clear. The ventricles and sulci are within normal limits for age. There is no mass, hematoma, midline shift. The major vascular flow-voids at the skull base are well maintained. Mild chronic small vessel change of aging. IMPRESSION: No acute intracranial abnormality. Mild chronic small vessel change of aging. Electronically signed by: Felix Barrow M.D. 09/17/2016 9:33 AM Dictated Date/Time: 09/17/2016 9:30 AM
[2016-09-17] MEDS ORDERED: LEVOTHYROXINE 50 MCG TAB PO ONE (09:45)
[2016-09-17] MEDS ORDERED: DEXTROSE 50% 50 ML SYR IV PRN (09:45)
[2016-09-17] MEDS ORDERED: GLUCOSE 40% GEL 15 GM TUBE PO PRN (09:45)
[2016-09-17] MEDS ORDERED: GLUCAGON FOR INJ 1 MG VIAL SQ PRN (09:45)
[2016-09-17] MEDS ORDERED: GLUCOSE 10 TABS/TUBE PO PRN (09:45)
[2016-09-17] MEDS ORDERED: LISINOPRIL 2.5 MG TAB PO ONE (09:45)
--- NOTE | 2016-09-17 09:58 | Progress Note ---
Medicine Progress Note Date & Time of Visit: Sep 17, 2016 at 09:48. Subjective patient seen sitting up in bed, granddaughter at bedside alert, calm, states she feels "really good" oriented x 3, answers all questions appropriately no recollection of yesterday or admission day events states she takes Lantus 4 units BID and Novolog 5 units with bfast and dinner denies taking more insulin, also does not administer insulin when skipping meal no headache, dizziness, nausea, changes with vision, focal neuro deficits denies chest pain, dyspnea, palpitations, dizziness no cough, abdominal pain, changes with BM or urinary symptoms no other symptoms Objective Last 8 Hrs Date Time Temp Pulse Resp B/P (MAP) Pulse Ox O2 Delivery O2 Flow Rate FiO2 09/17/16 07:47 36.8 62 20 130/72 (91) 97 Room Air 09/17/16 04:14 37.2 73 16 133/62 (85) 98 Room Air 09/17/16 04:00 Room Air Physical Exam: General- oriented x 3, Head- atraumatic Eyes- PERRL, EOMI, anicteric Neck- supple, no JVD, no adenopathy Lungs- clear breath sounds bilaterally, no rales/wheezes Heart- regular rhythm; no murmur, normal rate Abdomen- normal bowel sounds, soft, nontender Extremities- no pretibial edema, no calf tenderness; peripheral pulses intact Neuro- alert, not oriented; PERRL, EOMI; no facial palsy; no dysarthria;can move all extremities equally Skin- warm & dry Laboratory Results: Last 24 Hours Test 09/16/16 11:35 09/16/16 15:13 09/16/16 16:55 09/16/16 18:23 Bedside Glucose 211 mg/dl 150 mg/dl 195 mg/dl Troponin I 0.131 ng/ml Test 09/16/16 20:03 09/16/16 23:52 09/17/16 04:02 09/17/16 05:43 Bedside Glucose 195 mg/dl 179 mg/dl 190 mg/dl White Blood Count 4.90 K/uL Red Blood Count 4.12 M/uL Hemoglobin 11.8 g/dL Hematocrit 36.8 % Mean Corpuscular Volume 89.3 fL Mean Corpuscular Hemoglobin 28.6 pg Mean Corpuscular Hemoglobin Concent 32.1 g/dl Platelet Count 255 K/uL Mean Platelet Volume 10.0 fL Neutrophils (%) (Auto) 48.1 % Lymphocytes (%) (Auto) 33.3 % Monocytes (%) (Auto) 13.9 % Eosinophils (%) (Auto) 4.1 % Basophils (%) (Auto) 0.4 % Neutrophils # (Auto) 2.36 K/uL Lymphocytes # (Auto) 1.63 K/uL Monocytes # (Auto) 0.68 K/uL Eosinophils # (Auto) 0.20 K/uL Basophils # (Auto) 0.02 K/uL RDW Standard Deviation 44.5 fL RDW Coefficient of Variation 13.6 % Immature Granulocyte % (Auto) 0.2 % Immature Granulocyte # (Auto) 0.01 K/uL Sodium Level 144 mmol/L Potassium Level 3.9 mmol/L Chloride Level 114 mmol/L Carbon Dioxide Level 24 mmol/L Anion Gap 6.0 mmol/L Blood Urea Nitrogen 11 mg/dl Creatinine 0.68 mg/dl Est Creatinine Clear Calc Drug Dose 69.1 ml/min Estimated GFR () 107.1 Estimated GFR (Non- 92.4 BUN/Creatinine Ratio 16.4 Random Glucose 175 mg/dl Estimated Average Glucose 146 mg/dl Hemoglobin A1c 6.7 % Calcium Level 7.9 mg/dl Test 09/17/16 06:36 Bedside Glucose 158 mg/dl Date/Time Source Procedure Growth Status 09/16/16 15:45 Urine , Clean Catch Urine Culture - Final MORE THAN THREE TYPES OF ORGANISMS TX... Complete Assessment & Plan 66 year old female with history of DM on insulin, hypertension, hld, non obstructive CAD presenting with altered mental status and hypoglycemia ALTERED MENTAL STATUS, POSSIBLE ENCEPHALOPATHY FROM: ACUTE DELIRIUM in the setting of hypoglycemia PRN Haldol, IV fluids Neurochecks -- mental status back to baseline -- Neurology consulted R/O INFECTION blood, urine cultures: pending but no no fever, WBC elevation, UA clean hold off on antibiotics -- monitor and ff up cultures -- hold off antibiotics POSSIBLE POST ICTAL EPISODE FROM HYPOGLYCEMIA INDUCED SEIZURE? EEG: negative CVA ruled out MRI brain: no acute process ELEVATED CARDIAC MARKERS non obstructive CAD per daughter, s/p Cardiac Cath 2014 EKG non specific t wave changes in anteroseptal leads Echo: pending no cardiac symptoms on Aspirin DM a1c 6.7 states she takes Lantus 4 units BID and Novolog 5 units with bfast and dinner denies taking more insulin, also does not administer insulin when skipping meal -- Pharmacy consulted HTN resume Lisinopril monitor HYPOTHYROIDISM resume lthyroxine HLD on Pravachol DVT PROPHYLAXIS SCDs Lovenox CODE STATUS FULL CODE DISPOSITION pending usually lives with pt/ot follows with PCP 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 UD PRN PO 09/16/16 07:00 10/16/16 06:59 Glucose (Glucose Chew Tab) 4-8 Tablets 4 Tabl... UD PRN PO 09/16/16 07:00 10/16/16 06:59 Dextrose (Dextrose 50% 50ML Syringe) 25-50ML OF 50% DW IV FOR... UD PRN IV 09/16/16 07:00 10/16/16 06:59 Glucagon (Glucagon Inj) 1 mg UD PRN SQ 09/16/16 07:00 10/16/16 06:59 Miscellaneous Information (Consult Glycemic Management Pharmacy) 1 ea UD PRN N/A 09/16/16 07:00 10/16/16 06:59 Lorazepam (Ativan Inj) 0.5 mg DAILY PRN IV 09/16/16 11:15 09/18/16 11:14 09/16/16 11:22 0.5 MG Insulin Glargine (Lantus Solostar Pen) SEE PROTOCOL TEXT ... BID SC 09/16/16 21:00 10/16/16 20:59 09/17/16 09:15 5 UNIT Potassium Chloride/Dextrose/ Sod Cl 1,000 ml @ 100 mls/hr Q10H IV 09/16/16 18:30 10/16/16 18:29 09/17/16 04:04 100 MLS/HR Insulin Aspart (novoLOG ASPART) SLIDING SCALE If C... Q4 SC 09/16/16 20:00 10/16/16 19:59 09/17/16 04:04 1 UNITS
[2016-09-17] MEDS ORDERED: ACETAMINOPHEN 325 MG TAB ONE (11:17)
--- NOTE | 2016-09-17 13:26 | Pharmacy Progress Note ---
Glycemic Control: Progress Nt Date of Service Sep 17, 2016. Scope Glycemic Pharmacist consulted by Dr Segura on 09/16/16 for glycemic control and to write orders per [facility] inpatient glycemic control protocol. Objective Accuchecks BSG (last 24hrs): Test 09/16/16 16:55 09/16/16 18:23 09/16/16 20:03 09/16/16 23:52 Bedside Glucose 150 mg/dl (70-90) 195 mg/dl (70-90) 195 mg/dl (70-90) 179 mg/dl (70-90) Test 09/17/16 04:02 09/17/16 05:43 09/17/16 06:36 Bedside Glucose 190 mg/dl (70-90) 158 mg/dl (70-90) Random Glucose 175 mg/dl (70-99) Laboratory Data (last 24hrs) Test 09/17/16 05:43 Anion Gap 6.0 mmol/L BUN/Creatinine Ratio 16.4 Blood Urea Nitrogen 11 mg/dl Creatinine 0.68 mg/dl Hemoglobin A1c 6.7 % Potassium Level 3.9 mmol/L Sodium Level 144 mmol/L White Blood Count 4.90 K/uL Red Blood Count 4.12 M/uL Hemoglobin 11.8 g/dL Hematocrit 36.8 % Mean Corpuscular Volume 89.3 fL Mean Corpuscular Hemoglobin 28.6 pg Mean Corpuscular Hemoglobin Concent 32.1 g/dl Platelet Count 255 K/uL Mean Platelet Volume 10.0 fL Neutrophils (%) (Auto) 48.1 % Lymphocytes (%) (Auto) 33.3 % Monocytes (%) (Auto) 13.9 % Eosinophils (%) (Auto) 4.1 % Basophils (%) (Auto) 0.4 % Neutrophils # (Auto) 2.36 K/uL Lymphocytes # (Auto) 1.63 K/uL Monocytes # (Auto) 0.68 K/uL Eosinophils # (Auto) 0.20 K/uL Basophils # (Auto) 0.02 K/uL HbA1c: Test 09/17/16 05:43 Hemoglobin A1c 6.7 % (4.5-5.6) H Recent Pertinent Medications Outpatient Anti-diabetic Regimen: * Lantus 4 units BID, Humalog 5 units with breakfast and 5 units with dinner Risk Factors for Insulin Resistance: * Diet: low NA/T2DM * D5NS + 20 K @ 60 ml/hr (decreased from 100 ml/hr) Assessment & Plan ASSESSMENT: Initial * 66 yr old diabetic female admitted with AMS, possible encephalopathy (r/o CVA vs. r/o infection vs. acute delirium vs. hypoglycemic induced seizure). * Outpatient glycemic control is unknown at this time. Patient is unable to report home medications and doses. I attempted to contact patient's but was unable to reach him. I was able to reach her daughter, Grazyna, but she was unable to provide any additional information regarding home insulin doses. I did request that she contact the pharmacy if she is able to obtain patient's medications. According to Dr. Null, the patient uses ~25 units of insulin per day (note - dosing info may not be accurate). * Will be conservative with basal insulin d/t unknown needs at this time, NPO status, lack of risk factors for insulin resistance, and mention of recent hypoglycemic events in H&P * Will start patient on correctional insulin with Novolog - based dose on weight and stress of 2. * ADA & AACE recommend a goal blood sugar range 140-180 mg/dl for the majority of critically ill & non-critically ill patients. However, more stringent targets may be selected in individual cases. 09/16/16 * Mental status improved today. Patient able to report home medications - states she takes 18 units of insulin per day. * BSGs ranged from 135 to 222 mg/dL over the past 24 hours. Patient required 12 units of insulin yesterday. * BSGs spiked last evening after being started on IVFs containing dextrose. Rate of IVF has since been decreased. * BSGs improved today but not still not optimal * Continue current dose of Lantus per scale * I suspect fasting BSG will continue to improve - unknown when last dose of Lantus was taken as outpatient * Tighten CF/CR parameters to allow for additional meal time coverage * Conservative goal range was chosen initially d/t unknown insulin needs and recent hypoglycemic event. I feel comfortable tightening goal range at this time. PLAN FOR INPATIENT GLYCEMIC CONTROL: * Basal insulin -Lantus per scale BID * 0 units if BSG is less than 120 mg/dL * 5 units if BSG is 120 mg/dL or more * Correctional Insulin with NOVOLOG per scale ACHS * Change Goal Range: Low 120 mg/dL - High 160 mg/dL * Correction Factor: 25 mg/dL/unit * Nutritional / Prandial insulin per carb ratio of 1 unit per 8 grams CHO consumed * Please note that the plan above was derived based on current level of insulin resistance and hospital stress. These recommendations are appropriate for inpatient admission only. Plan of care upon discharge will need to be reassessed to avoid potential outpatient hypo/hyperglycemia. Thank you.
--- NOTE | 2016-09-17 14:37 | Neurology Progress Notes ---
Neurology Progress Note Date of Service Sep 17, 2016. Subjective Linda is a 66 year old female with PMH of DM, with hypoglycemic episodes, HTN, hypothyroid, DL, osteoporosis. She was brought to the ED EMS with complaints of altered mental status. Daughter said that she called her mother to check on her and patient seems to be confused. Daughter said that when her mother confused it is because her BS is low. she said that she came to check on her and found her BS was in the 35's When her family attempted to talk to her, she became agitated.She was given two 25 mg doses of Dextrose without any changes in her mental status/agitation. As per Daughter the changed in mental status and agitation never lasted for so long. Daughter said that her mother usually back to her baseline once her BS improved. She is sitting up in bed and talking to her family when entering the room. States she woke up this am and knew she was in the hospital. denies any focal deficit. She states she knows what happened she gave herself extra insulin because she was anticipating what she was going to eat. Objective Date Time Temp Pulse Resp B/P (MAP) Pulse Ox O2 Delivery O2 Flow Rate FiO2 09/17/16 12:16 95 Room Air 09/17/16 11:08 36.8 62 20 163/76 (105) 96 Room Air 166/68 (100) 09/17/16 08:00 95 Room Air 09/17/16 07:47 36.8 62 20 130/72 (91) 97 Room Air 09/17/16 04:14 37.2 73 16 133/62 (85) 98 Room Air 09/17/16 04:00 Room Air 09/17/16 00:30 Room Air 09/16/16 23:53 37.6 92 16 126/57 (80) 97 Room Air 09/16/16 20:00 95 Room Air 09/16/16 19:13 37.2 73 24 128/57 (80) 98 Room Air 09/16/16 16:07 36.6 57 21 131/63 (85) 100 Room Air 09/16/16 16:00 97 Room Air Last 24 Hours Test 09/16/16 15:13 09/16/16 16:55 09/16/16 18:23 09/16/16 20:03 Troponin I 0.131 ng/ml Bedside Glucose 150 mg/dl 195 mg/dl 195 mg/dl Test 09/16/16 23:52 09/17/16 04:02 09/17/16 05:43 09/17/16 06:36 Bedside Glucose 179 mg/dl 190 mg/dl 158 mg/dl White Blood Count 4.90 K/uL Red Blood Count 4.12 M/uL Hemoglobin 11.8 g/dL Hematocrit 36.8 % Mean Corpuscular Volume 89.3 fL Mean Corpuscular Hemoglobin 28.6 pg Mean Corpuscular Hemoglobin Concent 32.1 g/dl Platelet Count 255 K/uL Mean Platelet Volume 10.0 fL Neutrophils (%) (Auto) 48.1 % Lymphocytes (%) (Auto) 33.3 % Monocytes (%) (Auto) 13.9 % Eosinophils (%) (Auto) 4.1 % Basophils (%) (Auto) 0.4 % Neutrophils # (Auto) 2.36 K/uL Lymphocytes # (Auto) 1.63 K/uL Monocytes # (Auto) 0.68 K/uL Eosinophils # (Auto) 0.20 K/uL Basophils # (Auto) 0.02 K/uL RDW Standard Deviation 44.5 fL RDW Coefficient of Variation 13.6 % Immature Granulocyte % (Auto) 0.2 % Immature Granulocyte # (Auto) 0.01 K/uL Sodium Level 144 mmol/L Potassium Level 3.9 mmol/L Chloride Level 114 mmol/L Carbon Dioxide Level 24 mmol/L Anion Gap 6.0 mmol/L Blood Urea Nitrogen 11 mg/dl Creatinine 0.68 mg/dl Est Creatinine Clear Calc Drug Dose 69.1 ml/min Estimated GFR () 107.1 Estimated GFR (Non- 92.4 BUN/Creatinine Ratio 16.4 Random Glucose 175 mg/dl Estimated Average Glucose 146 mg/dl Hemoglobin A1c 6.7 % Calcium Level 7.9 mg/dl Imaging: MRI brain without- No acute intracranial abnormality. Mild chronic small vessel change of aging. EEG- : This EEG, despite the muscle movement artifacts is essentially normal during wakefulness without evidence for a clearcut focal or generalized encephalopathy and without evidence for potentially epileptogenic activity. Exam: Physical Exam: Constitutional: appearance nourished, healthy and normal Ears, Nose, Mouth and Throat: mucous membranes moist, no injection and skin normal, eyes normal Cardiovascular: normal S-1 and S-2 and regular rate and rhythm Respiratory: clear to auscultation (CTA) and no rales, rhonchi or wheeze Musculoskeletal: no peripheral edema and good distal pulses Skin: no stigmata of neurocutaneous disease noted and normal and intact Eyes: extraocular muscles intact (EOMI) and pupils equal, round and reactive to light (PERRL) NEUROLOGIC EXAMINATION: Mental status: Alert and interactive Oriented to full date and location, knows [facility], president Johnson, year 2016 Oriented to person Speech fluent with no evidence of aphasia Cranial Nerves smile eye brow raise bilaterally symmetric, tongue midline Reflexes: Deep tendon reflexes were symmetrical and graded 2/5. Plantar responses were flexor. Sensory: to light touch or cool touch Coordination: finger to nose without bi pass Gait/Stance: Posture sitting up in bed Motor: Negative for pronator drift of out stretched arms with eyes closed. Strength: biceps triceps hand stapler machine bilaterally 5/5, hip flex plantar flex ext 5/5 bilaterally Current Inpatient Medications Medications (Trade) Dose Ordered Sig/Benny Route Start Time Stop Time Status Last Admin Dose Admin Enoxaparin Sodium (Lovenox Inj) 40 mg QAM SC 09/16/16 09:30 10/16/16 09:29 09/16/16 11:32 40 MG Glucose (Glucose 40% Gel) 15-30 GRAMS 15 GRAMS... UD PRN PO 09/16/16 07:00 10/16/16 06:59 Glucose (Glucose Chew Tab) 4-8 Tablets 4 Tabl... UD PRN PO 09/16/16 07:00 10/16/16 06:59 Dextrose (Dextrose 50% 50ML Syringe) 25-50ML OF 50% DW IV FOR... UD PRN IV 09/16/16 07:00 10/16/16 06:59 Glucagon (Glucagon Inj) 1 mg UD PRN SQ 09/16/16 07:00 10/16/16 06:59 Miscellaneous Information (Consult Glycemic Management Pharmacy) 1 ea UD PRN N/A 09/16/16 07:00 10/16/16 06:59 Lorazepam (Ativan Inj) 0.5 mg DAILY PRN IV 09/16/16 11:15 09/18/16 11:14 09/16/16 11:22 0.5 MG Insulin Glargine (Lantus Solostar Pen) SEE PROTOCOL TEXT ... BID SC 09/16/16 21:00 10/16/16 20:59 09/17/16 09:15 5 UNIT Potassium Chloride/Dextrose/ Sod Cl 1,000 ml @ 60 mls/hr [id number] IV 09/16/16 18:30 10/16/16 18:29 09/17/16 04:04 100 MLS/HR Pravastatin Sodium (Pravachol Tab) 80 mg DAILY@17 PO 09/17/16 17:00 10/17/16 16:59 Aspirin (Ecotrin Tab) 81 mg QAM PO 09/18/16 09:00 10/18/16 08:59 Levothyroxine Sodium (Synthroid Tab) 50 mcg DAILYBB PO 09/18/16 06:00 10/18/16 05:59 Lisinopril (Zestril Tab) 2.5 mg QAM PO 09/18/16 09:00 10/18/16 08:59 Insulin Aspart (novoLOG ASPART) SLIDING SCALE If C... ACHS SC 09/17/16 16:15 10/17/16 16:14 Impression 66 year old with acute confusion Plan 1. work up started for infectious etiology no infection found 2. MRI without contrast r/o stroke or other structure lesions- no acute findings 3. continue glucose control and HTN- this is likely a prolonged hypoglycemic event 4. currently back to baseline 5. patient states she gave herself too much insulin- will need retrained regarding insulin control- very tight control may not be possible 6. family information is very helpful 7. will sign off for now will be available for questions concerns 8. TTE pending official read, blood cultures pending no follow up with our office need but will see prn I have seen and discussed above patient with Dr Karla Chiu, neurology Pt seen and examined, at baseline. MRI no acute infarct. Suspect prolonged effect of hypoglycemia. EEG no sz. Will sign off, SYD Chiu MD
[2016-09-17] MEDS ORDERED: PRAVASTATIN SOD 40 MG TAB PO SCH (17:00)
--- NOTE | 2016-09-17 17:11 | ECHOCARDIOGRAM REPORT ---
*NOTICE TO RECEIVING DEMOCRAT AGENCY This information is strictly Confidential and protected under [place] law. [place] law prohibits you from making any further disclosure of this information unless further disclosure is expressly permitted by the written consent of the person to whom it pertains or is authorized by law. A general authorization for the release of medical or other information is not sufficient for this purpose. Hospital accepts no responsibility if the information is made available to any other person, INCLUDING THE PATIENT. Interpretation Summary * Name: JUNIOR AGUIRRE Study Date: 09/17/2016 10:25 AM BP: 130/72 mmHg * Patient Location: C.2T\S\S233\S\1 HR: 62 * : 1950 (M/d/yyyy) Gender: Female Height: 63 in * Age: 66 yrs Ethnicity: [place] Weight: 126 lb * Ordering Physician: Jose D Chávez * Referring Physician: Self, Referred * Performed By: Nickie Mauricio RDCS * * Reason For Study: ELEVATED CARDIAC MARKERS * BSA: 1.6 m2 * -- Conclusions -- * The left ventricle is normal in size. * There is mild concentric left ventricular hypertrophy. * Left ventricular systolic function is normal. * The left ventricular wall motion is normal. * Ejection Fraction = 65-70%. Procedure Details * A complete two-dimensional transthoracic echocardiogram was performed (2D, M-mode, Doppler and color flow Doppler). Left Ventricle * The left ventricle is normal in size. * There is mild concentric left ventricular hypertrophy. * Ejection Fraction = 65-70%. * Left ventricular systolic function is normal. * The left ventricular wall motion is normal. Right Ventricle * The right ventricle is normal in size and function. Atria * The left atrial size is normal. * Right atrial size is normal. * No ASD detected; PFO is not assessed. Mitral Valve * The mitral valve anatomy is normal. * There is no mitral valve stenosis. * There is trace mitral regurgitation. Tricuspid Valve * The tricuspid valve anatomy is normal. * There is no tricuspid stenosis. * There is trace tricuspid regurgitation. * Doppler findings do not suggest pulmonary hypertension. Aortic Valve * The aortic valve is trileaflet. * No hemodynamically significant valvular aortic stenosis. * No aortic regurgitation is present. Pulmonic Valve * The pulmonic valve is not well visualized. Great Vessels * The aortic root is normal size. Pericardium/Pleural * There is no pericardial effusion. Great Vessels * Normal inferior vena cava diameter and respiratory variation suggests normal central venous pressure. MMode 2D Measurements and Calculations IVSd 1.2 cm IVSs 1.5 cm LVIDd 3.5 cm LVIDs 2.2 cm LVPWd 1.2 cm LVPWs 1.4 cm IVS/LVPW 1.0 FS 38.3 % EDV(Teich) 50.4 ml ESV(Teich) 15.3 ml EF(Teich) 69.6 % EDV(cubed) 42.4 ml ESV(cubed) 10.0 ml EF(cubed) 76.5 % % IVS thick 26.0 % % LVPW thick 18.4 % LV mass(C)d 128.6 grams LV mass(C)dI 80.9 grams/m\S\2 LV mass(C)s 95.9 grams LV mass(C)sI 60.3 grams/m\S\2 SV(Teich) 35.1 ml SI(Teich) 22.1 ml/m\S\2 SV(cubed) 32.4 ml SI(cubed) 20.4 ml/m\S\2 Ao root diam 2.8 cm Ao root area 6.2 cm\S\2 LA dimension 3.1 cm LA/Ao 1.1 LVAd ap4 23.0 cm\S\2 LVLd ap4 7.8 cm EDV(MOD-sp4) 58.2 ml EDV(sp4-el) 58.0 ml LVAs ap4 11.4 cm\S\2 LVLs ap4 6.0 cm ESV(MOD-sp4) 19.8 ml ESV(sp4-el) 18.2 ml EF(MOD-sp4) 66.0 % EF(sp4-el) 68.6 % LVAd ap2 20.9 cm\S\2 LVLd ap2 7.6 cm EDV(MOD-sp2) 48.2 ml EDV(sp2-el) 48.9 ml LVAs ap2 10.9 cm\S\2 LVLs ap2 6.0 cm ESV(MOD-sp2) 18.5 ml ESV(sp2-el) 16.8 ml EF(MOD-sp2) 61.6 % EF(sp2-el) 65.6 % LVLd %diff -2.61 % EDV(MOD-bp) 53.9 ml LVLs %diff -0.88 % ESV(MOD-bp) 19.2 ml EF(MOD-bp) 64.4 % SV(MOD-sp4) 38.4 ml SI(MOD-sp4) 24.2 ml/m\S\2 SV(MOD-sp2) 29.7 ml SI(MOD-sp2) 18.7 ml/m\S\2 SV(MOD-bp) 34.7 ml SI(MOD-bp) 21.8 ml/m\S\2 SV(sp4-el) 39.8 ml SI(sp4-el) 25.0 ml/m\S\2 SV(sp2-el) 32.0 ml SI(sp2-el) 20.2 ml/m\S\2 Doppler Measurements and Calculations MV E max mari 115.9 cm/sec MV dec time 0.22 sec Ao V2 max 131.8 cm/sec Ao max PG 7.0 mmHg Ao max PG (full) 4.6 mmHg LV V1 max PG 2.4 mmHg LV V1 max 77.1 cm/sec TR max mari 262.3 cm/sec
[2016-09-18] VITALS: BP 144/63; PULSE 63; TEMP 36.8; O2SAT 98
[2016-09-18 03:00] VITALS: BP 146/73; PULSE 54; TEMP 36.8; O2SAT 97
[2016-09-18] MEDS ORDERED: LEVOTHYROXINE 50 MCG TAB PO SCH (06:00)
[2016-09-18 07:07] LABS: BASO % 0.2 %; BASO ABS # 0.01 K/uL (0-0.2); COMPLETE YES; HEMATOCRIT 37.9 % (37-47); LYMPH % 31.7 %; LYMPH ABS # 1.68 K/uL (1.2-3.4); MEAN CELL VOLUME 88.8 fL (80-100); MEAN CORPUSCULAR HEMOGLOBIN 29.3 pg (25-34); MEAN PLATELET VOLUME 9.9 fL (7.4-10.4); MONO % 10.4 %; NEUT % 51.7 %; PLATELET COUNT 247 K/uL (130-400); RED BLOOD COUNT 4.27 M/uL (4.2-5.4)
[2016-09-18 07:40] LABS: BUN/CREATININE RATIO 11.4 (10-20); CALCIUM 8.5 mg/dl (8.5-10.1); CREATININE 0.73 mg/dl (0.60-1.20); POTASSIUM 4.3 mmol/L (3.5-5.1)
[2016-09-18 07:43] VITALS: BP 151/76; PULSE 58; TEMP 37; O2SAT 94
[2016-09-18] MEDS: ENOXAPARIN 40 MG/0.4 ML SYR SC SCH (08:13)
[2016-09-18] MEDS: INSULIN ASPART 100 UNITS/ML 3 ML PEN SC SCH ×2 (08:17→12:24)
[2016-09-18] MEDS ORDERED: ASPIRIN 81 MG ECTAB PO SCH (09:00)
[2016-09-18] MEDS ORDERED: LISINOPRIL 2.5 MG TAB PO SCH (09:00)
[2016-09-18] MEDS ORDERED: INSULIN GLARGINE SOLOSTAR 100 UNITS/ML 3 ML PEN SC ONE (10:00)
--- NOTE | 2016-09-18 10:13 | Pharmacy Progress Note ---
Glycemic Control: Progress Nt Date of Service Sep 18, 2016. Scope Glycemic Pharmacist consulted by Dr Segura on 09/16/16 for glycemic control and to write orders per [facility] inpatient glycemic control protocol. Objective Accuchecks BSG (last 24hrs): Test 09/17/16 11:07 09/17/16 16:39 09/17/16 20:51 09/18/16 01:42 Bedside Glucose 161 mg/dl (70-90) 211 mg/dl (70-90) 119 mg/dl (70-90) 118 mg/dl (70-90) Test 09/18/16 06:37 09/18/16 07:56 Random Glucose 173 mg/dl (70-99) Bedside Glucose 230 mg/dl (70-90) Laboratory Data (last 24hrs) Test 09/18/16 06:37 Anion Gap 9.0 mmol/L BUN/Creatinine Ratio 11.4 Blood Urea Nitrogen 8 mg/dl Creatinine 0.73 mg/dl Potassium Level 4.3 mmol/L Sodium Level 142 mmol/L White Blood Count 5.30 K/uL Red Blood Count 4.27 M/uL Hemoglobin 12.5 g/dL Hematocrit 37.9 % Mean Corpuscular Volume 88.8 fL Mean Corpuscular Hemoglobin 29.3 pg Mean Corpuscular Hemoglobin Concent 33.0 g/dl Platelet Count 247 K/uL Mean Platelet Volume 9.9 fL Neutrophils (%) (Auto) 51.7 % Lymphocytes (%) (Auto) 31.7 % Monocytes (%) (Auto) 10.4 % Eosinophils (%) (Auto) 6.0 % Basophils (%) (Auto) 0.2 % Neutrophils # (Auto) 2.74 K/uL Lymphocytes # (Auto) 1.68 K/uL Monocytes # (Auto) 0.55 K/uL Eosinophils # (Auto) 0.32 K/uL Basophils # (Auto) 0.01 K/uL HbA1c: Test 09/17/16 05:43 Hemoglobin A1c 6.7 % (4.5-5.6) H Recent Pertinent Medications Outpatient Anti-diabetic Regimen: * Lantus 4 units BID, Humalog 5 units with breakfast and 5 units with dinner Risk Factors for Insulin Resistance: * Diet: low NA/T2DM * D5NS + 20 K @ 60 ml/hr (~72 grams of dextrose over 24 hours) Assessment & Plan ASSESSMENT: Initial * 66 yr old diabetic female admitted with AMS, possible encephalopathy (r/o CVA vs. r/o infection vs. acute delirium vs. hypoglycemic induced seizure). * ADA & AACE recommend a goal blood sugar range 140-180 mg/dl for the majority of critically ill & non-critically ill patients. However, more stringent targets may be selected in individual cases. 09/18/16 * Stroke has been ruled out. No source of possible infection found. Patient reported to Neurologist that she "gave herself too much insulin". * BSGs ranged from 118 to 211 mg/dL over the past 24 hours. * Patient required 15 units of insulin yesterday * 5 units of basal insulin and 10 units of bolus insulin * Fasting BSG elevated this morning due lack of basal insulin at HS. Patient did not receive HS dose of Lantus on 09/17 due to hold parameter of no insulin if BSG is less than 120 mg/dL (BSG was 119 mg/dL). I suspect if patient received HS dose of Lantus, fasting BSG would be at goal. * Will give extra Lantus (7 units) this am to partially make up for no insulin last evening * Resume 5 units BID on 09/19 am * Bolus insulin is appropriate for now - I suspect parameters will need to be loosened on 09/19 PLAN FOR INPATIENT GLYCEMIC CONTROL: * Lantus 7 units SQ this am x 1 * Lantus SQ per scale at HS * 3 units if BSG is less than 120 mg/dL * 5 units if BSG is 120 mg/dL or more * Lantus 5 units BID starting 09/19 * Correctional/Prandial Insulin with NOVOLOG per scale ACHS * Change Goal Range: Low 120 mg/dL - High 160 mg/dL * Correction Factor: 25 mg/dL/unit * Nutritional / Prandial insulin per carb ratio of 1 unit per 8 grams CHO consumed DISCHARGE RECOMMENDATIONS * Good outpatient control evidenced by A1c of 6.7% * Recommend continuing home regimen of Lantus 4 units BID + Humalog 5 units with breakfast and dinner * Consider 1/2 dose of Humalog when PO intake is reduced to avoid hypoglycemia * Please note that the plan above was derived based on current level of insulin resistance and hospital stress. These recommendations are appropriate for inpatient admission only. Plan of care upon discharge will need to be reassessed to avoid potential outpatient hypo/hyperglycemia. Thank you.
[2016-09-18] MEDS: D5NSS + 20MEQ KCL 1,000 ML IV SCH (10:20)
[2016-09-18 12:02] VITALS: BP 145/83; PULSE 67; TEMP 36.6; O2SAT 95
[2016-09-18 13:05] VITALS: Ht 160 cm; Wt 55.9 kg
[2016-09-18 14:20] VITALS: BP 145/83; PULSE 67; TEMP 36.6; O2SAT 95
--- NOTE | 2016-09-18 14:34 | Progress Note ---
Medicine Progress Note Date & Time of Visit: Sep 18, 2016 at 14:22. Subjective patient seen resting in bed, comfortable states she feels much better alert, answers all questions appropriately denies headache, dizziness, nausea/vomiting, chest pain ,dyspnea, abdominal pain ambulates with no problems states she is back to baseline no other symptoms states she is ready and would like to be discharged today Objective Last 8 Hrs Date Time Temp Pulse Resp B/P (MAP) Pulse Ox O2 Delivery O2 Flow Rate FiO2 09/18/16 14:20 36.6 67 16 95 Room Air 09/18/16 12:02 36.6 67 16 145/83 (103) 95 09/18/16 12:00 Room Air 09/18/16 08:00 Room Air 09/18/16 07:43 37.0 58 16 151/76 (101) 94 Physical Exam: General- oriented x 3, not in distress, speaks in sentences with no effort Head- atraumatic Eyes- PERRL, EOMI, anicteric Neck- supple, no JVD Lungs- clear breath sounds bilaterally, no rales Heart- regular rhythm; no murmur, normal rate Abdomen- normal bowel sounds, soft, nontender Extremities- no pretibial edema, no calf tenderness; peripheral pulses intact Neuro- alert, oriented x 3, no gross focal deficits Skin- warm & dry Laboratory Results: Last 24 Hours Test 09/17/16 16:39 09/17/16 20:51 09/18/16 01:42 09/18/16 06:37 Bedside Glucose 211 mg/dl 119 mg/dl 118 mg/dl White Blood Count 5.30 K/uL Red Blood Count 4.27 M/uL Hemoglobin 12.5 g/dL Hematocrit 37.9 % Mean Corpuscular Volume 88.8 fL Mean Corpuscular Hemoglobin 29.3 pg Mean Corpuscular Hemoglobin Concent 33.0 g/dl Platelet Count 247 K/uL Mean Platelet Volume 9.9 fL Neutrophils (%) (Auto) 51.7 % Lymphocytes (%) (Auto) 31.7 % Monocytes (%) (Auto) 10.4 % Eosinophils (%) (Auto) 6.0 % Basophils (%) (Auto) 0.2 % Neutrophils # (Auto) 2.74 K/uL Lymphocytes # (Auto) 1.68 K/uL Monocytes # (Auto) 0.55 K/uL Eosinophils # (Auto) 0.32 K/uL Basophils # (Auto) 0.01 K/uL RDW Standard Deviation 44.1 fL RDW Coefficient of Variation 13.5 % Immature Granulocyte % (Auto) 0.0 % Immature Granulocyte # (Auto) 0.00 K/uL Sodium Level 142 mmol/L Potassium Level 4.3 mmol/L Chloride Level 109 mmol/L Carbon Dioxide Level 24 mmol/L Anion Gap 9.0 mmol/L Blood Urea Nitrogen 8 mg/dl Creatinine 0.73 mg/dl Est Creatinine Clear Calc Drug Dose 64.4 ml/min Estimated GFR () 100.9 Estimated GFR (Non- 87.0 BUN/Creatinine Ratio 11.4 Random Glucose 173 mg/dl Calcium Level 8.5 mg/dl Test 09/18/16 07:56 09/18/16 11:16 Bedside Glucose 230 mg/dl 214 mg/dl Assessment & Plan 66 year old female with history of DM on insulin, hypertension, hld, non obstructive CAD presenting with altered mental status and hypoglycemia ALTERED MENTAL STATUS, POSSIBLE ENCEPHALOPATHY FROM: ACUTE DELIRIUM in the setting of hypoglycemia PRN Haldol given, IV fluids -- mental status back to baseline -- Neurology consulted, no other further interventions at this time INFECTION ruled out blood, urine cultures: negative no no fever, WBC elevation not given antibiotics POSSIBLE POST ICTAL EPISODE FROM HYPOGLYCEMIA INDUCED SEIZURE EEG: negative CVA ruled out MRI brain: no acute process ELEVATED CARDIAC MARKERS non obstructive CAD per daughter, s/p Cardiac Cath 2014 EKG non specific t wave changes in anteroseptal leads Echo: -- Conclusions -- * The left ventricle is normal in size. * There is mild concentric left ventricular hypertrophy. * Left ventricular systolic function is normal. * The left ventricular wall motion is normal. * Ejection Fraction = 65-70%. -- no cardiac symptoms -- on Aspirin DM verified with Endo Dr. Felix Arciniega who patient follows with she is supposed to be on lantus 5 units bid, Humalog TID patient states she takes Lantus 5 untis bid and Humalog A1c 6.7 - recommend to take Lantus 4 units BID, Humalog 4 units AC - advised to check BSG prior to giving insulin, record and show record to Endo also to hold Insulin if BSG is < 120 or if skipping meals call [employer] if BSG is persistently < 120 educated on symptoms of hypoglycemia and what to do if present HTN continue Lisinopril HYPOTHYROIDISM continue lthyroxine HLD on Pravachol DVT PROPHYLAXIS SCDs Lovenox CODE STATUS FULL CODE DISPOSITION d/c home ff up with PCP early next week ff up with Endo next week as scheduled Current Inpatient Medications: Current Inpatient Medications Medications (Trade) Dose Ordered Sig/Benny Route Start Time Stop Time Status Last Admin Dose Admin Enoxaparin Sodium (Lovenox Inj) 40 mg QAM SC 09/16/16 09:30 10/16/16 09:29 09/16/16 11:32 40 MG Glucose (Glucose 40% Gel) 15-30 GRAMS 15 GRAMS... UD PRN PO 09/16/16 07:00 10/16/16 06:59 Glucose (Glucose Chew Tab) 4-8 Tablets 4 Tabl... UD PRN PO 09/16/16 07:00 10/16/16 06:59 Dextrose (Dextrose 50% 50ML Syringe) 25-50ML OF 50% DW IV FOR... UD PRN IV 09/16/16 07:00 10/16/16 06:59 Glucagon (Glucagon Inj) 1 mg UD PRN SQ 09/16/16 07:00 10/16/16 06:59 Miscellaneous Information (Consult Glycemic Management Pharmacy) 1 ea UD PRN N/A 09/16/16 07:00 10/16/16 06:59 Insulin Glargine (Lantus Solostar Pen) SEE PROTOCOL TEXT ... BID SC 09/16/16 21:00 09/18/16 23:59 Future hold 09/17/16 09:15 5 UNIT Potassium Chloride/Dextrose/ Sod Cl 1,000 ml @ 60 mls/hr [id number] IV 09/16/16 18:30 10/16/16 18:29 09/18/16 10:20 60 MLS/HR Pravastatin Sodium (Pravachol Tab) 80 mg DAILY@17 PO 09/17/16 17:00 10/17/16 16:59 09/17/16 17:20 80 MG Aspirin (Ecotrin Tab) 81 mg QAM PO 09/18/16 09:00 10/18/16 08:59 09/18/16 08:14 81 MG Levothyroxine Sodium (Synthroid Tab) 50 mcg DAILYBB PO 09/18/16 06:00 10/18/16 05:59 09/18/16 06:05 50 MCG Lisinopril (Zestril Tab) 2.5 mg QAM PO 09/18/16 09:00 10/18/16 08:59 09/18/16 08:13 2.5 MG Insulin Aspart (novoLOG ASPART) SLIDING SCALE If C... ACHS SC 09/17/16 16:15 10/17/16 16:14 09/18/16 12:24 6 UNITS Insulin Glargine (Lantus Solostar Pen) 5 unit BID SC 09/19/16 09:00 10/19/16 08:59
--- NOTE | 2016-09-18 14:39 | Discharge Instructions ---
Discharge Instructions Date of Service Sep 18, 2016. Admission Reason for Admission: Altered Mental Status, Elevated Troponin Discharge Discharge Diagnosis / Problem: Altered Mental Status Discharge Goals Goal(s): Diagnostic testing, Therapeutic intervention Activity Recommendations Activity Limitations: as noted below (no heavy exertion until re-evaluated by Primary Care Physician) Lifting Limitations: until after follow-up appointment Exercise/Sports Limitations: until after follow-up appointment Driving or Machine Use: no driving until re-evaluated by Primary Care Physician . Instructions / Follow-Up Instructions / Follow-Up Please review your new medication list and follow instructions carefully. Always check your blood sugar before injecting Insulin. HOLD insulin dose if blood sugar is 120 or lower. HOLD insulin dose if your are skipping meal. Call your Diabetic Doctor if your blood sugar is always below 120./ Call your Diabetic Doctor if you have any Insulin questions. Follow up with your Primary care physician early nexy week. Follow up with your Diabetic doctor next week as scheduled. Current Hospital Diet Patient's current hospital diet: Low Sodium Diet (2gm Na), Diabetes Type 2 Diet Discharge Diet Recommended Diet: AHA Diet (Heart Healthy), Diabetes Type 2 Diet Pending Studies Studies pending at discharge: no Laboratory Results Hemoglobin A1c Test 09/17/16 05:43 Range/Units Estimated Average Glucose 146 mg/dl Hemoglobin A1c 6.7 H 4.5-5.6 % Medical Emergencies . Who to Call and When: Medical Emergencies: If at any time you feel your situation is an emergency, please call 911 immediately. . Non-Emergent Contact Non-Emergency issues call your: Primary Care Provider, Specialist (Diabetic Specialist) Call Non-Emergent contact if: you have a fever, you have any medication questions . . "Provider Documentation" section prepared by Jose D Chávez. . VTE Core Measure Inpt VTE Proph given/why not?: Enoxaparin (Lovenox)SQ
[2016-09-18] MEDS ORDERED: [UNRECOGNIZED DRUG - OTHER] SC ×2 (14:44)
[2016-09-18] MEDS ORDERED: INSDGIPEN SC (14:44)
[2016-09-18] MEDS ORDERED: SYN50 PO (14:44)
[2016-09-18] MEDS ORDERED: ASPEC81 PO (14:44)
[2016-09-18] MEDS ORDERED: LSN25 PO (14:44)
[2016-09-18] MEDS ORDERED: PRVC40 PO (14:44)
--- NOTE | 2016-09-18 15:00 | Discharge Summary ---
Discharge Summary Date of Service Sep 18, 2016. Discharge Summary Admission Date: Sep 16, 2016 at 05:14 Discharge Date: Sep 18, 2016 Discharge Disposition: Home Principal Diagnosis: ALTERED MENTAL STATUS, POSSIBLE ENCEPHALOPATHY FROM: ACUTE DELIRIUM in the setting of hypoglycemia Secondary Diagnoses/Problems: Please refer to hospital course below. Procedures: Brain MRI WITHOUT CONTRAST HISTORY: Mental status change r/o cava TECHNIQUE: Multiplanar multisequence MRI of the brain was performed without the use of contrast. COMPARISON STUDY: None. FINDINGS: There are no areas of restricted diffusion to suggest acute infarction. The midline structures are intact. The paranasal sinuses are clear. The mastoid air cells are clear. The ventricles and sulci are within normal limits for age. There is no mass, hematoma, midline shift. The major vascular flow-voids at the skull base are well maintained. Mild chronic small vessel change of aging. IMPRESSION: No acute intracranial abnormality. Mild chronic small vessel change of aging. ECHO: * Name: JUNIOR AGUIRRE Study Date: 09/17/2016 10:25 AM BP: 130/72 mmHg * Patient Location: [facility]\\S\\1 HR: 62 * : 1950 (M/d/yyyy) Gender: Female Height: 63 in * Age: 66 yrs Ethnicity: [place] Weight: 126 lb * Ordering Physician: Jose D Chávez * Referring Physician: Self, Referred * Performed By: Nickie Mauricio RDCS * * Reason For Study: ELEVATED CARDIAC MARKERS * BSA: 1.6 m2 * -- Conclusions -- * The left ventricle is normal in size. * There is mild concentric left ventricular hypertrophy. * Left ventricular systolic function is normal. * The left ventricular wall motion is normal. * Ejection Fraction = 65-70%. Procedure Details * A complete two-dimensional transthoracic echocardiogram was performed (2D, M-mode, Doppler and color flow Doppler). Left Ventricle * The left ventricle is normal in size. * There is mild concentric left ventricular hypertrophy. * Ejection Fraction = 65-70%. * Left ventricular systolic function is normal. * The left ventricular wall motion is normal. Right Ventricle * The right ventricle is normal in size and function. Atria * The left atrial size is normal. * Right atrial size is normal. * No ASD detected; PFO is not assessed. Mitral Valve * The mitral valve anatomy is normal. * There is no mitral valve stenosis. * There is trace mitral regurgitation. Tricuspid Valve * The tricuspid valve anatomy is normal. * There is no tricuspid stenosis. * There is trace tricuspid regurgitation. * Doppler findings do not suggest pulmonary hypertension. Aortic Valve * The aortic valve is trileaflet. * No hemodynamically significant valvular aortic stenosis. * No aortic regurgitation is present. Pulmonic Valve * The pulmonic valve is not well visualized. Great Vessels * The aortic root is normal size. Pericardium/Pleural * There is no pericardial effusion. Great Vessels * Normal inferior vena cava diameter and respiratory variation suggests normal central venous pressure. Consultations: Neurologist Dr. Chiu Pending Studies/Follow-Up: Please refer to hospital course below. Medication Reconciliation New Medications: Insulin Human Lispro (Humalog) 1,000 Units/10 Ml Inj 4 UNITS SC BID for 30 Days take 4 units with breakfast and lunch Insulin Human Lispro (Humalog) 1,000 Units/10 Ml Inj 3 UNITS SC DAILY for 30 Days with dinner Aspirin (Aspirin EC Low Dose) 81 Mg Ectab 81 MG PO QAM for 30 Days Insulin Glargine (Lantus Solostar) 100 Unit/Ml Inj 4 UNIT SC BID for 30 Days in AM and PM Levothyroxine Sodium (Synthroid) 50 Mcg Tab 50 MCG PO DAILYBB for 30 Days Lisinopril (Lisinopril) 2.5 Mg Tab 2.5 MG PO QAM for 30 Days Pravastatin Sod (Pravastatin Sodium) 40 Mg Tab 80 MG PO DAILY@17 for 30 Days Admission Information HPI (per Admitting provider): 66 year old female with PMH of Diabetes, hypoglycemic episodes was brought to the Emergency Room via EMS with complaints of altered mental status. Pt followed with Dr. Bustamante in [place]. History obtained from the daughter because of patient altered mental status and agitation. Daughter said that she called her mother to check on her and patient seems to be confused. Daughter said that when her mother confused it is because her BS is low. she said that she came to check on her and found her BS was in the 35's When her family attempted to talk to her, she became agitated.She was given two 25 mg doses of Dextrose without any changes in her mental status/agitation. As per Daughter the changed in mental status and agitation never lasted for so long. Daughter said that her mother usually back to her baseline once her BS improved. Doesn't seem to have any chest pain, palpitation, fever, pain, and SOB. Physical Exam (per Admitting): General Appearance: WD/WN, + pertinent finding (altered mental status and agitation) Head: normocephalic, atraumatic Eyes: normal inspection ENT: hearing grossly normal Neck: no JVD Respiratory/Chest: no respiratory distress, no accessory muscle use Cardiovascular: regular rate, rhythm, no JVD Abdomen/GI: normal bowel sounds, non tender, soft Back: no CVA tenderness Extremities/Musculoskelatal: no calf tenderness, no pedal edema Neurologic/Psych: + pertinent finding (confused, agitated, moves all 4 extremities) Skin: no rash Hospital Course 66 year old female with history of DM on insulin, hypertension, hld, non obstructive CAD presenting with altered mental status and hypoglycemia ALTERED MENTAL STATUS, POSSIBLE ENCEPHALOPATHY FROM: ACUTE DELIRIUM in the setting of hypoglycemia PRN Haldol given, IV fluids -- mental status back to baseline -- Neurology consulted, no other further interventions at this time INFECTION ruled out blood, urine cultures: negative no no fever, WBC elevation not given antibiotics POSSIBLE POST ICTAL EPISODE FROM HYPOGLYCEMIA INDUCED SEIZURE EEG: negative CVA ruled out MRI brain: no acute process DM 2 verified with [facility] Dr. Felix Arciniega who patient follows with she is supposed to be on lantus 5 units bid, Humalog TID patient states she takes Lantus 5 untis bid and Humalog A1c 6.7 - recommend to take Lantus 4 units BID, Humalog 4 units AC - advised to check BSG prior to giving insulin, record and show record to Endo also to hold Insulin if BSG is < 120 or if skipping meals always finish meals consistently call Nutritional Assistant if BSG is persistently < 120 educated on symptoms of hypoglycemia and what to do if present ELEVATED CARDIAC MARKERS non obstructive CAD per daughter, s/p Cardiac Cath 2014 troponin 0.12 --> 0.13 --> 0.13 EKG non specific t wave changes in anteroseptal leads Echo: -- Conclusions -- * The left ventricle is normal in size. * There is mild concentric left ventricular hypertrophy. * Left ventricular systolic function is normal. * The left ventricular wall motion is normal. * Ejection Fraction = 65-70%. -- no cardiac symptoms -- on Aspirin HTN -- continue Lisinopril HYPOTHYROIDISM -- continue lthyroxine HLD -- on Pravachol DISPOSITION d/c home ff up with PCP early next week ff up with Endo next week as scheduled patient declined home health services at this time Total time spent on discharge = 40 minutes This includes examination of the patient, discharge planning, medication reconciliation, and communication with other providers. Discharge Instructions Discharge Instructions Date of Service Sep 18, 2016. Admission Reason for Admission: Altered Mental Status, Elevated Troponin Discharge Discharge Diagnosis / Problem: Altered Mental Status Discharge Goals Goal(s): Diagnostic testing, Therapeutic intervention Activity Recommendations Activity Limitations: as noted below (no heavy exertion until re-evaluated by Primary Care Physician) Lifting Limitations: until after follow-up appointment Exercise/Sports Limitations: until after follow-up appointment Driving or Machine Use: no driving until re-evaluated by Primary Care Physician . Instructions / Follow-Up Instructions / Follow-Up Please review your new medication list and follow instructions carefully. Always check your blood sugar before injecting Insulin. HOLD insulin dose if blood sugar is 120 or lower. HOLD insulin dose if your are skipping meal. Call your Diabetic Doctor if your blood sugar is always below 120./ Call your Diabetic Doctor if you have any Insulin questions. Follow up with your Primary care physician early nexy week. Follow up with your Diabetic doctor next week as scheduled. Current Hospital Diet Patient's current hospital diet: Low Sodium Diet (2gm Na), Diabetes Type 2 Diet Discharge Diet Recommended Diet: AHA Diet (Heart Healthy), Diabetes Type 2 Diet Pending Studies Studies pending at discharge: no Laboratory Results Hemoglobin A1c Test 09/17/16 05:43 Range/Units Estimated Average Glucose 146 mg/dl Hemoglobin A1c 6.7 H 4.5-5.6 % Medical Emergencies . Who to Call and When: Medical Emergencies: If at any time you feel your situation is an emergency, please call 911 immediately. . Non-Emergent Contact Non-Emergency issues call your: Primary Care Provider, Specialist (Diabetic Specialist) Call Non-Emergent contact if: you have a fever, you have any medication questions . . "Provider Documentation" section prepared by Jose D Chávez. . VTE Core Measure Inpt VTE Proph given/why not?: Enoxaparin (Lovenox)SQ
[2016-09-19] MEDS ORDERED: INSULIN GLARGINE SOLOSTAR 100 UNITS/ML 3 ML PEN SC SCH (09:00)
== END 2016-09-18 15:20 | disposition home or self-care (01) | DRG 637 ==
LOC: EDBD 02:42 → C.EDB 02:43 → C.2T 05:14 → ENRESERV 05:23
PROVIDERS: ADMIT Internal Medicine; ATTEND Internal Medicine
DX: E11.649 Type 2 diabetes mellitus with hypoglycemia without coma (principal); G93.40 Encephalopathy, unspecified; G40.89 Other seizures; I10 Essential (primary) hypertension; I25.10 Atherosclerotic heart disease of native coronary artery without angina pectoris; E03.9 Hypothyroidism, unspecified; E78.5 Hyperlipidemia, unspecified; Z79.82 Long term (current) use of aspirin; M81.0 Age-related osteoporosis without current pathological fracture

== ENCOUNTER 2017-11-18 16:11 | Inpatient (IN) | payer OTHER ==
[~2017-11-18] VITALS: Ht 154.9 cm; Wt 58.9 kg
[~2017-11-18 16:11] MED LIST: ASPI-320 PO; INSDGIPEN SC; LSN25 PO; PRVC40 PO; SYN50 PO; [UNRECOGNIZED DRUG - OTHER] SC
[2017-11-18] MEDS ORDERED: ALBUT/IPRATROP 3MG/0.5MG NEB 3 ML VIAL INH STA (16:39)
[2017-11-18] MEDS ORDERED: SODIUM CHLORIDE 0.9% 1000ML 1,000 ML IV STA (16:39)
--- NOTE | 2017-11-18 16:57 | EMERGENCY ROOM VISIT NOTE ---
History Report prepared by Suha: Alisa Romero Under the Supervision of: Dr. Mark Perez M.D. First contact with patient: 16:22 Stated Complaint: HYPOGLYCEMIA History of Present Illness The patient is a 67 year old white female with a past medical history of insulin -dependent diabetes and heart catheterization who presents to the ED with a cc of persistent SOB beginning this morning. Her daughter notes she found the patient lying on the ground after mowing the grass with a push mower, and her blood sugar was 38 at that time. The patient reports she received a breathing treatment in the ambulance on the way to the ED. She notes a productive cough. The patient denies recent hospitalization, antibiotic use, travel, or swelling of legs. She also denies recent insulin changes, and says she ate and used her normal amount of insulin this morning. The patient is a former smoker, and quit over 45 years ago. She denies a history of asthma or lung disease. The patient had a heart cath 2 years ago at [place], which revealed 3 vessel blockages. Medical management was advised at that time and no stents were placed. Source of History: patient, family (daughter) Onset: this morning Quality: other (SOB) Timing: other (persistent) Associated Symptoms: + cough (productive) Note: Associated symptom: blood sugar of 38 Review of Systems See HPI for pertinent positives and negatives. A total of ten systems were reviewed and were otherwise negative. Past Medical & Surgical Medical Problems: (1) Altered mental status (2) Elevated troponin (3) Hypoglycemia Family History Patient reports no known family medical history. Social History Smoking Status: Former Smoker (Quit 45 years ago) Marital Status: Housing Status: lives with family Current/Historical Medications Scheduled Aspirin (Aspirin EC Low Dose), 81 MG PO QAM Ezetimibe (Zetia), 10 MG PO DAILY Insulin Detemir (Levemir), 10 UNITS SQ QAM Insulin Detemir (Levemir), 8 UNITS SQ QPM Insulin Lispro (Human) (Humalog), 5 UNITS SQ BID UD Insulin Lispro (Human) (Humalog), 4 UNITS SQ Q LUNCH Levothyroxine Sodium (Synthroid), 50 MCG PO DAILYBB Lisinopril (Zestril), 5 MG PO DAILY Nadolol (Corgard), 5 MG PO PRN UD Pravastatin Sod (Pravastatin Sodium), 80 MG PO DAILY@17 Allergies Coded Allergies: No Known Allergies (Unverified , 09/16/16) Physical Exam Vital Signs Date Time Temp Pulse Resp B/P (MAP) Pulse Ox O2 Delivery O2 Flow Rate FiO2 11/18/17 20:33 56 11/18/17 17:45 67 16 124/76 95 Room Air 11/18/17 16:53 98 11/18/17 16:30 72 11/18/17 16:15 36.6 68 20 138/82 98 Nasal Cannula 2.0 Physical Exam GENERAL: Awake, alert, well-appearing, NAD HENT: Normocephalic, atraumatic. EYES: Normal conjunctiva. Sclera non-icteric. PERRL. No anisocoria. NECK: Supple. No nuchal rigidity. FROM. RESPIRATORY: No rhonchi, wheezing, crackles. Diffuse rales throughout. CARDIAC: RRR, no MRG ABDOMEN: Soft, NTND, BS+ MSK: No chest wall TTP, no LE edema NEURO: GCS 15, CN 2-12 intact, moves all 4s on command SKIN: No rash or jaundice noted. Medical Decision & Procedures ER Provider Diagnostic Interpretation: Radiology results as stated below per my review and radiologist interpretation: CHEST 2 VIEWS ROUTINE CLINICAL HISTORY: SOB COMPARISON STUDY: No previous studies for comparison. FINDINGS: The heart is normal in size. There is no focal pulmonary consolidation. There is prominent bilateral subpleural septal edema. There are no pleural effusions. IMPRESSION: 1. Interstitial pulmonary edema 2. No evidence of focal pulmonary consolidation Electronically signed by: Bob Sands M.D. 11/18/2017 5:31 PM Dictated Date/Time: 11/18/2017 5:30 PM Laboratory Results 11/18/17 17:00 Red Blood Count 5.34, Mean Corpuscular Volume 88.6, Mean Corpuscular Hemoglobin 30.0, Mean Corpuscular Hemoglobin Concent 33.8, Mean Platelet Volume 10.3, Neutrophils (%) (Auto) 82.7, Lymphocytes (%) (Auto) 11.8, Monocytes (%) (Auto) 4.2, Eosinophils (%) (Auto) 0.8, Basophils (%) (Auto) 0.1, Neutrophils # (Auto) 11.33, Lymphocytes # (Auto) 1.61, Monocytes # (Auto) 0.58, Eosinophils # (Auto) 0.11, Basophils # (Auto) 0.01 11/18/17 17:00 Test 11/18/17 17:00 11/18/17 17:07 White Blood Count 13.69 K/uL (4.8-10.8) Red Blood Count 5.34 M/uL (4.2-5.4) Hemoglobin 16.0 g/dL (12.0-16.0) Hematocrit 47.3 % (37-47) Mean Corpuscular Volume 88.6 fL (80-100) Mean Corpuscular Hemoglobin 30.0 pg (25-34) Mean Corpuscular Hemoglobin Concent 33.8 g/dl (32-36) Platelet Count 333 K/uL (130-400) Mean Platelet Volume 10.3 fL (7.4-10.4) Neutrophils (%) (Auto) 82.7 % Lymphocytes (%) (Auto) 11.8 % Monocytes (%) (Auto) 4.2 % Eosinophils (%) (Auto) 0.8 % Basophils (%) (Auto) 0.1 % Neutrophils # (Auto) 11.33 K/uL (1.4-6.5) Lymphocytes # (Auto) 1.61 K/uL (1.2-3.4) Monocytes # (Auto) 0.58 K/uL (0.11-0.59) Eosinophils # (Auto) 0.11 K/uL (0-0.5) Basophils # (Auto) 0.01 K/uL (0-0.2) RDW Standard Deviation 42.1 fL (36.4-46.3) RDW Coefficient of Variation 13.0 % (11.5-14.5) Immature Granulocyte % (Auto) 0.4 % Immature Granulocyte # (Auto) 0.05 K/uL (0.00-0.02) Prothrombin Time 10.5 SECONDS (9.0-12.0) Prothromb Time International Ratio 1.0 (0.9-1.1) Activated Partial Thromboplast Time 25.0 SECONDS (21.0-31.0) Partial Thromboplastin Ratio 1.0 Anion Gap 7.0 mmol/L (3-11) Est Creatinine Clear Calc Drug Dose 69.4 ml/min Estimated GFR () 106.9 Estimated GFR (Non- 92.2 BUN/Creatinine Ratio 20.6 (10-20) Calcium Level 7.9 mg/dl (8.5-10.1) Magnesium Level 1.9 mg/dl (1.8-2.4) Total Bilirubin 0.5 mg/dl (0.2-1) Direct Bilirubin 0.1 mg/dl (0-0.2) Aspartate Amino Transf (AST/SGOT) 20 U/L (15-37) Alanine Aminotransferase (ALT/SGPT) 21 U/L (12-78) Alkaline Phosphatase 61 U/L (45-117) Troponin I 0.195 ng/ml (0-0.045) Pro-B-Type Natriuretic Peptide 717 pg/ml (0-900) Total Protein 6.5 gm/dl (6.4-8.2) Albumin 3.0 gm/dl (3.4-5.0) Lipase 61 U/L (73-393) Thyroid Stimulating Hormone (TSH) 1.590 uIu/ml (0.300-4.500) D-Dimer 700 ug/L FEU (0-500) Laboratory results reviewed by me Medications Administered Medications (Trade) Dose Ordered Sig/Benny Route Start Time Stop Time Status Last Admin Dose Admin Sodium Chloride 1,000 ml @ 999 mls/hr Q1H1M STAT IV 11/18/17 16:39 11/18/17 17:39 DC 11/18/17 16:46 999 MLS/HR Albuterol/ Ipratropium (Duoneb) 6 ml ONE STAT INH 11/18/17 16:39 11/18/17 16:41 DC 11/18/17 16:46 6 ML Aspirin (Aspirin Chew) 324 mg NOW STAT PO 11/18/17 18:07 11/18/17 18:08 DC 11/18/17 19:25 324 MG Potassium Chloride (Klor-Con Tab) 40 meq NOW STAT PO 11/18/17 18:07 11/18/17 18:08 DC 11/18/17 20:21 40 MEQ Calcium Gluconate (Calcium Gluconate 10%) 2,000 mg NOW STAT IV 11/18/17 18:07 11/18/17 18:08 DC 11/18/17 19:29 2,000 MG ECG Per My Interpretation Indication: SOB/dyspnea Rate (beats per minute): 58 Rhythm: sinus bradycardia Findings: other (normal intervals. normal axis. hyperactive T-waves in lateral lead. no ST segment changes. no T-wave inversion.) Comparison ECG Date: 09/16/16 Change: When compared to 09/16/16: hyperactive T-waves are new, no other significant changes ED Course 1624: The patient was evaluated in room C9. A complete history and physical exam was performed. 1817: Discussed the patient's case with Dr. Monroe, information technology internship. He recommended beginning a Heparin drip. 1835: Discussed the patient's case with Caty Ledesma PA-C, [facility] hospitalist. The patient will be evaluated for further treatment and disposition. Medical Decision Nursing notes reviewed. Ancillary studies and prior records reviewed. The patient is a 67 year old white female with a past medical history of insulin -dependent diabetes and heart catheterization who presents to the ED with a cc of persistent SOB beginning this morning. Etiologies such as infections, reactive airway disease, pneumonia, pneumothorax , COPD, CHF, cardiac ischemia, pulmonary embolism, musculoskeletal, gastrointestinal, as well as others were entertained. Patient was seen and evaluated the bedside. The patient was complaining of some shortness of breath. Of note the patient does have coarse breath sounds throughout on exam. The patient has had a productive cough but denies any smoking. Patient denies any fever chest pains. The patient was noted to been found down by family member where she had a low blood glucose. Paramedics did arrive and did administer some D10. The patient's repeat blood glucose was greater than 200 and then upon presentation was 73. The patient states that maybe she inadvertently self administered too much insulin but primarily she takes a long-acting morning and evening as well as 4 of regular before meals. Patient did have blood work completed along with chest x-ray and urinalysis troponin and EKG. Patient's EKG did show some hyperacute T waves. Patient's chest x-ray did show interstitial pulmonary edema. Patient's other blood work showed that she had an elevated troponin persistent hypoglycemia as well as hypocalcemia and hypokalemia. I did order replete minutes of her electrolytes. The patient upon reassessment was feeling improved and currently denies any the hyperacute T waves do appear changed compared to prior. Given that the patient's positive troponin I did speak with the on-call information technology internship who agreed with heparin. I did discuss with the patient the patient is agreeable to staying in having further workup. Also after discussion the patient did have an episode like this 2 years prior where she was transferred [place] where she had a heart catheterization which showed 20% 20% 50% stenosis of unknown vessels. She was treated medically and not with any stents. I did speak with the on-call hospitalist who agreed to further evaluate and treat the patient. Medication Reconcilliation Current Medication List: was personally reviewed by me Blood Pressure Screening Patient's blood pressure: Elevated blood pressure Blood pressure disposition: Referred to PCP (referred to hospitalist) Consults Time Called: 1809 Consulting Physician: Dr. Monroe, information technology internship Returned Call: [phone]: Discussed the patient's case with Dr. Monroe, information technology internship. He recommended beginning a Heparin drip. Additional Consults: Time Called: 1829 Consulted Physician: Caty Ledesma PA-C, [facility] Returned Call: [phone] Additional Comments: 1835: Discussed the patient's case with Caty Ledesma PA-C, [facility] hospitalist. The patient will be evaluated for further treatment and disposition. Impression Primary Impression: Hypoglycemia Additional Impressions: Elevated troponin SOB (shortness of breath) Critical Care I have personally spent greater than 52 minutes of critical care time in the direct management of this patient. This includes bedside care, interpretation of diagnostic studies, and testing, discussion with consultants, patient, and family members, and other required patient management activities. This 52 minutes is in excess of all separately billable procedures. Scribe Attestation The scribe's documentation has been prepared under my direction and personally reviewed by me in its entirety. I confirm that the note above accurately reflects all work, treatment, procedures, and medical decision making performed by me. Departure Information Dispostion Being Evaluated By Hospitalist Referrals Murray Bustamante M.D. (PCP) Problem Qualifiers
[2017-11-18 17:27] LABS: BASO % 0.1 %; BASO ABS # 0.01 K/uL (0-0.2); EOS % 0.8 %; EOS ABS # 0.11 K/uL (0-0.5); HEMATOCRIT 47.3 % (37-47); IG# 0.05 K/uL (0.00-0.02); LYMPH % 11.8 %; LYMPH ABS # 1.61 K/uL (1.2-3.4); MEAN CELL VOLUME 88.6 fL (80-100); MEAN CORPUSCULAR HGB CONC 33.8 g/dl (32-36); MEAN PLATELET VOLUME 10.3 fL (7.4-10.4); MONO % 4.2 %; MONO ABS # 0.58 K/uL (0.11-0.59); NEUT % 82.7 %; NEUT ABS # 11.33 K/uL (1.4-6.5); PLATELET COUNT 333 K/uL (130-400); RED CELL DISTRIBUTION WIDTH SD 42.1 fL (36.4-46.3); WHITE BLOOD COUNT 13.69 K/uL (4.8-10.8)
--- NOTE | 2017-11-18 17:32 | DIAGNOSTIC IMAGING REPORT ---
CHEST 2 VIEWS ROUTINE CLINICAL HISTORY: SOB COMPARISON STUDY: No previous studies for comparison. FINDINGS: The heart is normal in size. There is no focal pulmonary consolidation. There is prominent bilateral subpleural septal edema. There are no pleural effusions.[ IMPRESSION: 1. Interstitial pulmonary edema 2. No evidence of focal pulmonary consolidation Electronically signed by: Bob Sands M.D. 11/18/2017 5:31 PM Dictated Date/Time: 11/18/2017 5:30 PM
[2017-11-18] MEDS ORDERED: NADO20TA PO (17:58)
[2017-11-18] MEDS ORDERED: INSU100I SQ ×2 (17:58)
[2017-11-18] MEDS ORDERED: LISI-729 PO (17:58)
[2017-11-18] MEDS ORDERED: LVMI SQ ×2 (17:58)
[2017-11-18] MEDS ORDERED: EZET10TA63 PO (17:58)
[2017-11-18 18:04] LABS: CALCIUM 7.9 mg/dl (8.5-10.1); CREATININE 0.67 mg/dl (0.60-1.20); POTASSIUM 3.4 mmol/L (3.5-5.1); TOTAL PROTEIN 6.5 gm/dl (6.4-8.2)
[2017-11-18] MEDS ORDERED: CALCIUM GLUCONATE 10% 10 ML VIAL IV STA (18:07)
[2017-11-18] MEDS ORDERED: POTASSIUM CHLORIDE 20 MEQ TABCR PO STA (18:07)
[2017-11-18] MEDS ORDERED: ASPIRIN 324 MG CHEW PO STA (18:07)
[2017-11-18] MEDS ORDERED: DEXTROSE 50% 50 ML SYR IV ONE (18:15)
[2017-11-18] MEDS ORDERED: HEPARIN SOD 5000 UNIT/0.5 ML CARP ONE (18:50)
[2017-11-18] MEDS ORDERED: HEPARIN 25000 UNIT/500 ML D5W ONE (18:51)
[2017-11-18] MEDS ORDERED: POLYETHYLENE (MIRALAX) 17 GM PACK PO PRN (21:30)
[2017-11-18] MEDS ORDERED: ACETAMINOPHEN 325 MG TAB PO PRN (21:30)
[2017-11-18] MEDS ORDERED: ONDANSETRON INJ 2 MG/ML 2 ML VIAL IV PRN (21:30)
[2017-11-18] MEDS ORDERED: NITROGLYCERIN 0.4 MG SL PER TAB CHARGE SL PRN (21:30)
[2017-11-18] MEDS ORDERED: ALUMINUM/MAGNESIUM/SIMETH (MAALOX MAX) 30 ML UDC PO PRN (21:30)
[2017-11-18] MEDS ORDERED: OPTIRAY 320 IV PRN (21:45)
--- NOTE | 2017-11-18 22:10 | HISTORY & PHYSICAL EXAMINATION ---
DATE OF ADMISSION: 11/18/2017 CHIEF COMPLAINT: Syncope. HISTORY OF PRESENT ILLNESS: This is a 67-year-old female with past medical history significant for nonobstructive CAD, diabetes, hypertension, hyperlipidemia who was brought in because with syncope and hypoglycemic episode. The patient was mowing the grass and sat on the porch when she passed out. Her granddaughter saw her and when the EMS was brought in, her blood sugar was in 30's. After giving glucose, she woke up and she was short of breath at that time, but she is doing okay now. Denies any chest pain. No dizziness, no headaches, no blurred vision, no earache, some runny nose from sinusitis. No cough, no sore throat, no difficulty swallowing. No shortness of breath currently, was nauseous earlier but no nausea now and no abdominal pain. Normal bowel and bladder movements. Currently, resting comfortably and hemodynamically stable. ALLERGIES: No known drug allergies. PAST MEDICAL HISTORY: As mentioned above. PAST SURGICAL HISTORY: Cardiac catheterization. FAMILY HISTORY: No significant family history as per records. SOCIAL HISTORY: No smoking. . REVIEW OF SYMPTOMS: As per HPI. Rest of review of symptoms negative. MEDICATIONS AT HOME: The patient is on Humalog 4 units with lunch, 5 units with breakfast and dinner, Levemir 10 units in a.m. and 8 units in p.m., nadolol uses only when she is exerting, aspirin 81 mg p.o. daily, Zetia 10 mg p.o. daily, levothyroxine 50 mcg p.o. daily, lisinopril 5 mg p.o. daily, pravastatin 80 mg p.o. daily. PHYSICAL EXAMINATION: GENERAL: The patient alert and oriented, not in distress. VITAL SIGNS: Temperature 36.6, pulse 67, respiratory rate 16, blood pressure 124/76, oxygen 95% room air. HEENT: No pallor, no icterus. Pupils equal, round, and react to light. NECK: No JVD, no neck masses, no carotid bruits. CARDIOVASCULAR: S1, S2 heard, regular rate and rhythm, no murmur, no gallop. RESPIRATORY SYSTEM: Normal AP diameter. No accessory muscle use. No wheezing, no crackles. ABDOMEN: Soft, bowel sounds present. Nontender. No distention. CENTRAL NERVOUS SYSTEM: Cranial nerves II-XII grossly intact. Nonfocal. EXTREMITIES: No edema, no erythema. LABS: WBC 13.6, hemoglobin 16, hematocrit 47.3, platelets 333. Sodium 142, potassium 3.4, chloride 110, bicarbonate 25, BUN 14, creatinine 0.6, serum glucose 142, calcium 7.9, magnesium 1.9, total bilirubin 0.5, direct bilirubin 0.1, AST 20, ALT 21, alkaline phosphatase is 61, troponin 10.195. BNP 717. TSH 1.5. Lipase 61. PT 10.5, INR 1, APTT 25.5. D-dimer 700. Chest x-ray, interstitial pulmonary edema, no evidence of focal pulmonary consolidation. EKG: Shows sinus bradycardia with a rate of 58, no acute ST changes seen. ASSESSMENT AND PLAN: This is 67-year-old female presents with syncope. 1. Syncope, mostly secondary to hypoglycemia. The patient had similar episode in the past. We will hold her Levemir and place her on insulin sliding scale with no carb coverage. Check HbA1c level. Consult pharmacy for glycemic management. Diabetes education Monitor on the tele floor. 2. Elevated D-dimer. We will also check a lower extremity Doppler. Currently, patient also some congestion on chest x-ray, Will be doing CT of the chest to rule out pulmonary embolism. 3. Mild elevation in troponin, patient has history of nonobstructive coronary artery disease on aspirin at home and statin and takes nadolol only if it is needed when exerting. We will follow serial cardiac enzymes, echocardiogram , and also rule out pulmonary embolism.cardiology consulted and started on iv heparin. 4. Hyperlipidemia. Continue statin. follow the lipid profile. 5. Hypertension. Continue home medications. 6. Hypothyroidism. Continue Synthroid. 7. Deep venous thrombosis prophylaxis, started on IV heparin. DISPOSITION: Monitor in tele floor. Expected to discharge home and follow with family doctor. Level 1 full code. MTDD
[2017-11-18] MEDS ORDERED: D5W AND NSS 1,000 ML IV SCH (22:30)
[2017-11-18 23:52] VITALS: BP 117/75; PULSE 54; TEMP 36.5; O2SAT 97; BMI 24.5
[2017-11-19] MEDS ORDERED: HEPARIN 25,000 UNIT/500ML D5W 500 ML IV SCH (04:00)
[2017-11-19 04:08] VITALS: BP 101/61; PULSE 64; TEMP 37.1; O2SAT 93
[2017-11-19 04:14] LABS: BASO % 0.1 %; BASO ABS # 0.01 K/uL (0-0.2); EOS % 0.4 %; EOS ABS # 0.03 K/uL (0-0.5); HEMATOCRIT 40.3 % (37-47); HEMOGLOBIN 13.5 g/dL (12.0-16.0); IG# 0.02 K/uL (0.00-0.02); LYMPH % 16.7 %; LYMPH ABS # 1.41 K/uL (1.2-3.4); MEAN CELL VOLUME 88.4 fL (80-100); MEAN CORPUSCULAR HEMOGLOBIN 29.6 pg (25-34); MEAN CORPUSCULAR HGB CONC 33.5 g/dl (32-36); MONO % 9.8 %; MONO ABS # 0.83 K/uL (0.11-0.59); NEUT % 72.8 %; NEUT ABS # 6.13 K/uL (1.4-6.5); PLATELET COUNT 240 K/uL (130-400); RED CELL DISTRIBUTION WIDTH CV 13.1 % (11.5-14.5); WHITE BLOOD COUNT 8.43 K/uL (4.8-10.8)
[2017-11-19 04:38] LABS: PTT PATIENT 61.9 SECONDS (21.0-31.0)
[2017-11-19 04:50] LABS: ALBUMIN 3.1 gm/dl (3.4-5.0); ALKALINE PHOSPHATASE 57 U/L (45-117); ALT/SGPT 18 U/L (12-78); AST/SGOT 31 U/L (15-37); BLOOD UREA NITROGEN 15 mg/dl (7-18); CALCIUM 8.9 mg/dl (8.5-10.1); CARBON DIOXIDE 25 mmol/L (21-32); CHOLESTEROL 129 mg/dl (0-200); CKMB 14.2 ng/ml (0.5-3.6); CREATININE 0.86 mg/dl (0.60-1.20); GLUCOSE 249 mg/dl (70-99); LDL CHOLESTEROL CALCULATED 46 mg/dl; POTASSIUM 4.7 mmol/L (3.5-5.1); SODIUM 139 mmol/L (136-145); TOTAL PROTEIN 6.2 gm/dl (6.4-8.2)
[2017-11-19] MEDS ORDERED: LEVOTHYROXINE 50 MCG TAB PO SCH (06:00)
[2017-11-19 06:11] LABS: HEMOGLOBIN A1C 7.2 % (4.5-5.6)
[2017-11-19 07:16] VITALS: BP 91/43; PULSE 67; TEMP 37.1; O2SAT 94
[2017-11-19] MEDS: INSULIN ASPART 100 UNITS/ML 3 ML PEN SC SCH ×3 (07:50→17:15)
[2017-11-19 07:54] VITALS: BP 112/67; PULSE 77
[2017-11-19] MEDS ORDERED: PHARMACY GLYCEMIC MGMT CONSULT SCH (08:23)
--- NOTE | 2017-11-19 08:30 | DIAGNOSTIC IMAGING REPORT ---
CT ANGIOGRAM OF THE CHEST CLINICAL HISTORY: Hypoglycemia. Dyspnea. COMPARISON STUDY: Chest x-ray dated 11/18/2017. TECHNIQUE: Following the IV administration of 113 cc of Optiray 320, CT angiogram of the chest was performed from the upper abdomen to the thoracic inlet utilizing the pulmonary embolus protocol. Images are reviewed in the axial, sagittal, and coronal planes. 3-D MIPS images are created and assessed. IV contrast was administered without complication. A dose lowering technique was utilized adhering to the principles of ALARA. CT DOSE: 211.86 mGy.cm FINDINGS: Thyroid: Imaged portions of the thyroid gland are normal in size and heterogeneous and attenuation. Thoracic aorta: There is mild atherosclerotic calcification of the thoracic aorta, which is normal in caliber and demonstrates standard 3-vessel arch anatomy. No dissection is seen. Pulmonary vasculature: The pulmonary trunk is normal in caliber. There are no filling defects identified in main, lobar, or segmental pulmonary branches to suggest pulmonary embolus. Heart: The heart is mildly enlarged and without pericardial effusion. Lungs and pleural spaces: Evaluation of lung parenchyma is degraded by motion artifact. There are trace pleural effusions. Diffuse intralobular septal thickening as well as peribronchial thickening are noted, and diffuse groundglass opacities are identified. The trachea and central airways are clear. Mediastinum: There is no mediastinal lymphadenopathy. Maya: Clear. Axillae: There is no axillary lymphadenopathy. Upper abdomen: Partially visualized upper abdominal viscera is within normal limits. Skeletal structures: The skeletal structures are osteopenic. There are age indeterminant compression deformities of T4, T5, T6, and T7. No lytic or blastic bony lesions are seen. IMPRESSION: 1. There is no evidence of pulmonary embolus in the main, lobar, or segmental pulmonary arteries. 2. Cardiomegaly with evidence of congestive failure. 3. Diffuse groundglass opacities likely represent interstitial edema. Correlate clinically for evidence of a superimposed infectious/inflammatory pneumonitis. 4. Trace pleural effusions. 5. Age indeterminant thoracic compression deformities as above. Electronically signed by: Jean-Pierre Maynard M.D. 11/19/2017 8:29 AM Dictated Date/Time: 11/19/2017 7:15 AM
[2017-11-19] MEDS ORDERED: INSULIN DETEMIR FLEXPEN/FLEX TOUCH 100 UNITS/ML 3ML SC SCH (09:00)
[2017-11-19] MEDS ORDERED: RANITIDINE HCL 150 MG TAB PO SCH (09:00)
[2017-11-19] MEDS ORDERED: ASPIRIN 81 MG ECTAB PO SCH (09:00)
[2017-11-19] MEDS ORDERED: EZETIMIBE 10MG TAB PO SCH (09:00)
[2017-11-19] MEDS ORDERED: LISINOPRIL 5 MG TAB PO SCH (09:00)
--- NOTE | 2017-11-19 10:45 | Pharmacy Progress Note ---
Glycemic Control Intl Consult Date of Service Nov 19, 2017. Scope Glycemic Pharmacist consulted by Dr Klein on 11/19/17 for glycemic control and to write orders per [facility] inpatient glycemic control protocol Objective Weight (Kilograms): 58.900 Accuchecks BSG (last 24hrs): Test 11/18/17 16:24 11/18/17 17:00 11/18/17 18:25 11/18/17 18:43 Bedside Glucose 72 mg/dl (70-90) 103 mg/dl (70-90) 82 mg/dl (70-90) Random Glucose 42 mg/dl (70-99) Test 11/19/17 00:09 11/19/17 04:06 11/19/17 07:44 11/19/17 07:45 Bedside Glucose 123 mg/dl (70-90) 316 mg/dl (70-90) 290 mg/dl (70-90) Random Glucose 249 mg/dl (70-99) Test 11/19/17 09:17 Bedside Glucose 304 mg/dl (70-90) Laboratory Data (last 24hrs) Test 11/18/17 17:00 11/19/17 04:06 Anion Gap 7.0 mmol/L 10.0 mmol/L BUN/Creatinine Ratio 20.6 17.6 Blood Urea Nitrogen 14 mg/dl 15 mg/dl Creatinine 0.67 mg/dl 0.86 mg/dl Potassium Level 3.4 mmol/L 4.7 mmol/L Sodium Level 142 mmol/L 139 mmol/L White Blood Count 13.69 K/uL 8.43 K/uL Red Blood Count 5.34 M/uL 4.56 M/uL Hemoglobin 16.0 g/dL 13.5 g/dL Hematocrit 47.3 % 40.3 % Mean Corpuscular Volume 88.6 fL 88.4 fL Mean Corpuscular Hemoglobin 30.0 pg 29.6 pg Mean Corpuscular Hemoglobin Concent 33.8 g/dl 33.5 g/dl Platelet Count 333 K/uL 240 K/uL Mean Platelet Volume 10.3 fL 10.0 fL Neutrophils (%) (Auto) 82.7 % 72.8 % Lymphocytes (%) (Auto) 11.8 % 16.7 % Monocytes (%) (Auto) 4.2 % 9.8 % Eosinophils (%) (Auto) 0.8 % 0.4 % Basophils (%) (Auto) 0.1 % 0.1 % Neutrophils # (Auto) 11.33 K/uL 6.13 K/uL Lymphocytes # (Auto) 1.61 K/uL 1.41 K/uL Monocytes # (Auto) 0.58 K/uL 0.83 K/uL Eosinophils # (Auto) 0.11 K/uL 0.03 K/uL Basophils # (Auto) 0.01 K/uL 0.01 K/uL Hemoglobin A1c 7.2 % HbA1c Test 11/19/17 04:06 Hemoglobin A1c 7.2 % (4.5-5.6) H Recent Pertinent Medications Outpatient Anti-diabetic Regimen: * Levemir 10 units SQ QAM, 8 units SQ HS * Humalog with meals - 5 units breakfast, 4 units lunch, 5 units dinner * A1c = 7.2 % 11/19/17 The patient is currently receiving: * Basal insulin: None * Correctional Insulin: Novolog Correction per scale ACHS Goal Range: Low 140 mg/dL - High 180 mg/dL Correction Factor: 30 mg/dL/unit * Prandial insulin: None Risk Factors for Insulin Resistance: * Infection: UTI? * IVF: Heparin drip * Diet: NPO Assessment & Plan ASSESSMENT: * 67 year old female admitted with syncope, hypoglycemia. Started on heparin drip, ruling out PE. Insulin was held on admission last night. Patient now basal deficient and hyperglycemic. * restart basal at reduced dose. * adjust goal range, CF and CR. * ADA & AACE recommend a goal blood sugar range 140-180 mg/dl for the majority of critically ill & non-critically ill patients. However, more stringent targets may be selected in individual cases. Will utilize more stringent goal of 120-150mg/dl based on patient age & comorbidities, but not too low d/t hypoglycemia history. * Patient known to pharmacy glycemic service from last summer, patient only required an average of 15 units of insulin per day. PLAN FOR INPATIENT GLYCEMIC CONTROL: * Basal insulin with LANTUS SQ BID * 0 units for BSG < 120mg/dl * 6 units BSG 120-200mg/dl * 8 units BSG > 200mg/dl * Correctional Insulin with NOVOLOG per scale ACHS or Q6hrs while NPO * Goal Range: Low 120 mg/dL - High 150 mg/dL * Correction Factor: 30 mg/dL/unit * Nutritional / Prandial insulin per carb ratio of 1 unit per 12 grams CHO consumed * Please note that the plan above was derived based on current level of insulin resistance and hospital stress. These recommendations are appropriate for inpatient admission only. Plan of care upon discharge will need to be reassessed to avoid potential outpatient hypo/hyperglycemia. Thank you.
[2017-11-19] MEDS ORDERED: PERFLUTREN LIPID MICROSPHERE (DEFINITY) IV ONE (10:54)
--- NOTE | 2017-11-19 11:09 | ECHOCARDIOGRAM REPORT ---
*NOTICE TO RECEIVING DEMOCRAT AGENCY This information is strictly Confidential and protected under [place] law. [place] law prohibits you from making any further disclosure of this information unless further disclosure is expressly permitted by the written consent of the person to whom it pertains or is authorized by law. A general authorization for the release of medical or other information is not sufficient for this purpose. Hospital accepts no responsibility if the information is made available to any other person, INCLUDING THE PATIENT. Interpretation Summary * Name: JUNIOR AGUIRRE Study Date: 11/19/2017 08:26 AM BP: 112/67 mmHg * Patient Location: C.2T\S\S238\S\1 HR: 70 * : 1950 (M/d/yyyy) Gender: Female Height: 61 in * Age: 67 yrs Ethnicity: [place] Weight: 131 lb * Ordering Physician: Arthur Klein * Referring Physician: Self, Referred * Performed By: Nickie Mauricio RDCS * * Reason For Study: ELEVATED TROPONIN * BSA: 1.6 m2 * -- Conclusions -- * Normal LV chamber size with mild concentric LVH. * Normal LV systolic function, EF 60-65%. * No segmental left ventricular wall motion abnormalities are noted. * Grade I diastolic dysfunction. * No significant valvular pathology. Procedure Details * A complete two-dimensional transthoracic echocardiogram was performed (2D, M-mode, Doppler and color flow Doppler). Left Ventricle * The left ventricle is normal in size. * There is mild concentric left ventricular hypertrophy. * Ejection Fraction = 60-65%. * Left ventricular systolic function is normal. * No segmental left ventricular wall motion abnormalities are noted. * The left ventricular wall motion is normal. Right Ventricle * The right ventricular cavity size is normal (basal dimension <4.2 cm in right ventricular apical 4-chamber view). * The right ventricular systolic function is normal as assessed by tricuspid annular plane systolic excursion (TAPSE) (normal >1.5 cm). Atria * The left atrial size is normal. * Right atrial size is normal. * No ASD detected; PFO is not assessed. Mitral Valve * The mitral valve is normal in structure and function. Tricuspid Valve * The tricuspid valve is normal in structure and function. Aortic Valve * The aortic valve is normal in structure and function. Pulmonic Valve * The pulmonary valve is not well seen, but the Doppler examination is normal without significant regurgitation or stenosis. Great Vessels * The aortic root is normal size. Pericardium/Pleural * There is no pericardial effusion. Left Ventricular Diastolic Function * Grade I diastolic dysfunction, (abnormal relaxation pattern). MMode 2D Measurements and Calculations IVSd 1.3 cm IVSs 1.6 cm LVIDd 3.3 cm LVIDs 2.0 cm LVPWd 1.2 cm LVPWs 1.3 cm IVS/LVPW 1.1 FS 40.9 % EDV(Teich) 45.7 ml ESV(Teich) 12.4 ml EF(Teich) 73.0 % EDV(cubed) 37.5 ml ESV(cubed) 7.7 ml EF(cubed) 79.4 % % IVS thick 21.9 % % LVPW thick 7.6 % LV mass(C)d 136.2 grams LV mass(C)dI 86.3 grams/m\S\2 LV mass(C)s 89.7 grams LV mass(C)sI 56.8 grams/m\S\2 SV(Teich) 33.3 ml SI(Teich) 21.1 ml/m\S\2 SV(cubed) 29.8 ml SI(cubed) 18.9 ml/m\S\2 Ao root diam 2.1 cm Ao root area 3.4 cm\S\2 LVAd ap4 18.5 cm\S\2 LVLd ap4 6.9 cm EDV(MOD-sp4) 41.7 ml EDV(sp4-el) 41.8 ml LVAs ap4 10.3 cm\S\2 LVLs ap4 6.0 cm ESV(MOD-sp4) 17.0 ml ESV(sp4-el) 15.0 ml EF(MOD-sp4) 59.2 % EF(sp4-el) 64.1 % LVAd ap2 21.5 cm\S\2 LVLd ap2 7.3 cm EDV(MOD-sp2) 53.8 ml EDV(sp2-el) 53.8 ml LVAs ap2 12.0 cm\S\2 LVLs ap2 6.4 cm ESV(MOD-sp2) 20.4 ml ESV(sp2-el) 19.1 ml EF(MOD-sp2) 62.0 % EF(sp2-el) 64.4 % LVLd %diff 5.5 % EDV(MOD-bp) 47.5 ml LVLs %diff 5.9 % ESV(MOD-bp) 18.7 ml EF(MOD-bp) 60.6 % SV(MOD-sp4) 24.7 ml SI(MOD-sp4) 15.7 ml/m\S\2 SV(MOD-sp2) 33.4 ml SI(MOD-sp2) 21.1 ml/m\S\2 SV(MOD-bp) 28.8 ml SI(MOD-bp) 18.2 ml/m\S\2 SV(sp4-el) 26.8 ml SI(sp4-el) 17.0 ml/m\S\2 SV(sp2-el) 34.6 ml SI(sp2-el) 21.9 ml/m\S\2 Doppler Measurements and Calculations MV E max mari 67.9 cm/sec MV A max mari 72.3 cm/sec MV E/A 0.94 MV dec time 0.27 sec Ao V2 max 150.7 cm/sec Ao max PG 9.1 mmHg Ao max PG (full) 4.0 mmHg LV V1 max PG 5.1 mmHg LV V1 max 113.2 cm/sec TR max mari 250.6 cm/sec
[2017-11-19] MEDS ORDERED: PHARMACY GLYCEMIC MGMT CONSULT STA (12:08)
[2017-11-19 12:34] VITALS: Ht 154.9 cm; Wt 58.9 kg
[2017-11-19 13:00] VITALS: BP 111/63; PULSE 57; TEMP 36.9; O2SAT 95
--- NOTE | 2017-11-19 14:17 | CARDIOLOGY CONSULTATION ---
DATE OF CONSULTATION: 11/19/2017 INPATIENT CARDIOLOGY CONSULTATION CONSULTATION REQUESTED BY: Dr. Perez. REASON FOR CONSULTATION: Syncope with elevated troponin. HISTORY OF PRESENT ILLNESS: Mrs. Mills is a very pleasant 67-year-old woman who presented to [facility] for witnessed syncopal episode at home. The patient states that she woke up in her normal state of health this morning and per usual took her morning insulin and out of the norm ate a muffin. She then got up and went out to cut the grass. After cutting the grass for some time, she became feeling a little lightheaded and a little fatigued. She walked back on her porch to drink some soda she had there thinking that her blood sugar might be low and she became very lightheaded and felt herself fall to the ground. Her granddaughter witnessed this and called 911. When they arrived, her blood sugar was in the 30s and she was given glucose. After receiving the glucose, she regained consciousness and was feeling back to normal. Upon arrival to the Emergency Department, her sugar was addressed, but her initial troponin was slightly elevated at 0.2. She also had some nonspecific T-wave changes on her EKG. I discussed the case with Dr. Perez at that time and agreed we start her on heparin while acute coronary syndrome was ruled out. Her troponin then peaked at 0.9 overnight, coming down to 0.65 in the a.m. Currently, she is without complaint at rest and notes that this is happened to her previously, states about 4 years ago she had similar hypoglycemic syncopal event and she was admitted to a hospital in [place] and her troponin was elevated and she was seen at that time by her maple products supervisor, Dr. Malcolm and her cardiac workup was negative. PAST SURGICAL HISTORY: Cardiac catheterization reportedly showing nonobstructive coronary artery disease. PAST MEDICAL HISTORY: 1. Nonobstructive coronary artery disease. 2. Diabetes. 3. Hypertension. 4. Hyperlipidemia. FAMILY HISTORY: Noncontributory. SOCIAL HISTORY: Denies any alcohol, tobacco or recreational drug use. She is . She lives at home with her . REVIEW OF SYSTEMS: As per HPI, all other review of systems reviewed and negative at this time. MEDICATIONS AN OUTPATIENT: 1. Aspirin 81 mg daily. 2. Zetia 10 mg daily. 3. Levothyroxine daily. 4. Lisinopril 5 mg daily. 5. Pravastatin 80 mg daily. 6. Nadolol p.r.n. palpitations. PHYSICAL EXAMINATION: VITALS: Temperature 37.1, pulse 67, respiratory rate 12, blood pressure 112/67. GENERAL: Awake, alert, oriented x3, in no acute distress. HEENT: Normocephalic, atraumatic. Pupils equal, round, reactive to light and accommodation. Extraocular muscles intact. Anicteric sclerae. Moist mucous membranes. NECK: No JVD, no bruit. CARDIOVASCULAR: Regular. Positive S4. Normal S1 and S2. No S3. No murmurs, rubs or gallops. PULMONARY: Clear to auscultation bilaterally. No rales, rhonchi, or wheezing. ABDOMEN: Bowel sounds x4, soft. No rebound, guarding, tenderness. No organomegaly. EXTREMITIES: No clubbing, cyanosis or edema. +2 pedal pulses bilaterally. SKIN: Warm and dry. TEST RESULTS: Initial troponin of 0.2 followed by 0.9, followed by 0.65. A 12-lead EKG performed in the Emergency Department independently reviewed at this time shows sinus bradycardia at 58 beats per minute with hyperacute T waves in the lateral leads, new compared to previous study. A 2D echocardiogram was read as normal LV chamber size with mild concentric LVH, normal LV systolic function, EF 60-65%, no segmental left ventricular wall motion abnormalities are noted, grade 1 diastolic dysfunction, no significant valvular pathology. IMPRESSION: 1. Elevated troponin secondary to metabolic abnormality in the setting of severe hypoglycemia. 2. Syncope secondary to hypoglycemia. 3. History of nonobstructive coronary artery disease. RECOMMENDATIONS: It was my pleasure to see Mrs. Mills in consultation today. From a cardiac standpoint, the patient does not appear to be actively ischemic and symptom free. Her troponin did become minimally elevated, but is now trending down and there are no wall motion abnormalities on her echocardiogram, so at this point I do believe the patient should have an ischemic evaluation as an outpatient and she notes that she is already scheduled to have a stress test with her outpatient maple products supervisor in the next few upcoming weeks. So, I have recommended she contact her maple products supervisor upon discharge to let them know about the above episode, maybe see if her stress test can be moved up. Otherwise, no other medication changes will be made at this time and other testing is necessary from a cardiac standpoint and is okay to discharge her to home once her metabolic abnormalities have been addressed.
[2017-11-19 15:00] VITALS: BP 115/65; PULSE 55; TEMP 36.9; O2SAT 94
--- NOTE | 2017-11-19 15:26 | Progress Note ---
Internal Med Progress Note Date of Service: Nov 19, 2017. Provider Documentation: SUBJECTIVE: Patient denies chest pain or shortness of breath or lightheadedness. Patient reports that she is back to her baseline health OBJECTIVE: PHYSICAL EXAMINATION: GENERAL: not in distress. HEENT: EOMI NECK: No JVD, no neck masses, no carotid bruits. CARDIOVASCULAR: regular rate and rhythm, no murmur, no gallop. RESPIRATORY SYSTEM: No accessory muscle use. No wheezing, no crackles. ABDOMEN: Soft, bowel sounds present. Nontender. No distention. CENTRAL NERVOUS SYSTEM: Cranial nerves II-XII grossly intact. Nonfocal. EXTREMITIES: No edema, no erythema. ASSESSMENT & PLAN: Echocardiogram * -- Conclusions -- * Normal LV chamber size with mild concentric LVH. * Normal LV systolic function, EF 60-65%. * No segmental left ventricular wall motion abnormalities are noted. * Grade I diastolic dysfunction. * No significant valvular pathology. Procedure Details * A complete two-dimensional transthoracic echocardiogram was performed (2D, M-mode, Doppler and color flow Doppler). Left Ventricle * The left ventricle is normal in size. * There is mild concentric left ventricular hypertrophy. * Ejection Fraction = 60-65%. * Left ventricular systolic function is normal. * No segmental left ventricular wall motion abnormalities are noted. * The left ventricular wall motion is normal. Right Ventricle * The right ventricular cavity size is normal (basal dimension <4.2 cm in right ventricular apical 4-chamber view). * The right ventricular systolic function is normal as assessed by tricuspid annular plane systolic excursion (TAPSE) (normal >1.5 cm). Atria * The left atrial size is normal. * Right atrial size is normal. * No ASD detected; PFO is not assessed. Mitral Valve * The mitral valve is normal in structure and function. Tricuspid Valve * The tricuspid valve is normal in structure and function. Aortic Valve * The aortic valve is normal in structure and function. Pulmonic Valve * The pulmonary valve is not well seen, but the Doppler examination is normal without significant regurgitation or stenosis. Great Vessels * The aortic root is normal size. Pericardium/Pleural * There is no pericardial effusion. Left Ventricular Diastolic Function * Grade I diastolic dysfunction, (abnormal relaxation pattern). Hospital Course and Discharge Plans This is a patient who presents for syncopal symptoms in the context of hypoglycemia for a patient with Type 1 Diabetes Mellitus on insulin -during hospital stay patient had her outpatient insulin reduced and became hyperglycemic to above 300s -pharmacy glycemic control assist with insulin management and patient assessed by breastfeeding educator -at this time blood sugar around 123 -patient reports that she understands how to modify her insulin regimen to minimize hypoglycemia or hyperglycemia -Hba1c is 7.2 On this admission patient was found to have elevated D-Dimer but CTA of the chest did not find evidence for pulmonary embolism Patient also had elevated troponins (0.195 to 0.907 peak) and was placed on heparin drip - patient did not have chest pain or shortness of breath symptoms - however patient had history of non obstructive coronary artery disease As per cardiology service Dr. Monroe, the patient's Elevated troponin secondary to metabolic abnormality in the setting of severe hypoglycemia. Dr. Monroe read the echocardiogram imaging and that the are no wall motion abnormalities on her echocardiogram and recommends that patient follow up with her outpatient bar welder for outpatient stress test for which is scheduled for but perhaps to move up the test date closer to hospital discharge Patient has good lipid profile and should continue home dose pravastatin Blood pressure was controlled. Continue Lisinopril History of Hypothyroidism -Continue Levothyroxine Discharge Instructions Please monitor your blood sugars closely while on insulin Please follow up with primary care doctor and bar welder. Recommend that patient have outpatient stress test closer to hospital discharge date Vital Signs: Date Time Temp Pulse Resp B/P (MAP) Pulse Ox O2 Delivery O2 Flow Rate FiO2 11/19/17 15:00 36.9 55 16 115/65 (82) 94 Room Air 11/19/17 13:00 36.9 57 20 111/63 (79) 95 Room Air 11/19/17 08:00 Room Air 11/19/17 07:54 77 112/67 (82) 11/19/17 07:16 37.1 67 20 91/43 (59) 94 Room Air 11/19/17 04:08 37.1 64 16 101/61 (74) 93 Room Air 11/19/17 04:00 Room Air 11/18/17 23:59 Room Air 11/18/17 23:52 36.5 54 18 117/75 97 Room Air 11/18/17 23:52 36.6 56 16 124/76 95 11/18/17 20:33 56 11/18/17 17:45 67 16 124/76 95 Room Air 11/18/17 16:53 98 Lab Results: Results Past 24 Hours Test 11/18/17 17:00 11/18/17 17:07 11/18/17 18:25 11/18/17 18:43 Range/Units White Blood Count 13.69 4.8-10.8 K/uL Red Blood Count 5.34 4.2-5.4 M/uL Hemoglobin 16.0 12.0-16.0 g/dL Hematocrit 47.3 37-47 % Mean Corpuscular Volume 88.6 80-100 fL Mean Corpuscular Hemoglobin 30.0 25-34 pg Mean Corpuscular Hemoglobin Concent 33.8 32-36 g/dl Platelet Count 333 130-400 K/uL Mean Platelet Volume 10.3 7.4-10.4 fL Neutrophils (%) (Auto) 82.7 % Lymphocytes (%) (Auto) 11.8 % Monocytes (%) (Auto) 4.2 % Eosinophils (%) (Auto) 0.8 % Basophils (%) (Auto) 0.1 % Neutrophils # (Auto) 11.33 1.4-6.5 K/uL Lymphocytes # (Auto) 1.61 1.2-3.4 K/uL Monocytes # (Auto) 0.58 0.11-0.59 K/uL Eosinophils # (Auto) 0.11 0-0.5 K/uL Basophils # (Auto) 0.01 0-0.2 K/uL RDW Standard Deviation 42.1 36.4-46.3 fL RDW Coefficient of Variation 13.0 11.5-14.5 % Immature Granulocyte % (Auto) 0.4 % Immature Granulocyte # (Auto) 0.05 0.00-0.02 K/uL Prothrombin Time 10.5 9.0-12.0 SECONDS Prothromb Time International Ratio 1.0 0.9-1.1 Activated Partial Thromboplast Time 25.0 21.0-31.0 SECONDS Partial Thromboplastin Ratio 1.0 Sodium Level 142 136-145 mmol/L Potassium Level 3.4 3.5-5.1 mmol/L Chloride Level 110 98-107 mmol/L Carbon Dioxide Level 25 21-32 mmol/L Anion Gap 7.0 3-11 mmol/L Blood Urea Nitrogen 14 7-18 mg/dl Creatinine 0.67 0.60-1.20 mg/dl Est Creatinine Clear Calc Drug Dose 69.4 ml/min Estimated GFR () 106.9 Estimated GFR (Non- 92.2 BUN/Creatinine Ratio 20.6 10-20 Random Glucose 42 70-99 mg/dl Calcium Level 7.9 8.5-10.1 mg/dl Magnesium Level 1.9 1.8-2.4 mg/dl Total Bilirubin 0.5 0.2-1 mg/dl Direct Bilirubin 0.1 0-0.2 mg/dl Aspartate Amino Transf (AST/SGOT) 20 15-37 U/L Alanine Aminotransferase (ALT/SGPT) 21 12-78 U/L Alkaline Phosphatase 61 45-117 U/L Troponin I 0.195 0-0.045 ng/ml Pro-B-Type Natriuretic Peptide 717 0-900 pg/ml Total Protein 6.5 6.4-8.2 gm/dl Albumin 3.0 3.4-5.0 gm/dl Lipase 61 73-393 U/L Thyroid Stimulating Hormone (TSH) 1.590 0.300-4.500 uIu/ml D-Dimer 700 0-500 ug/L FEU Bedside Glucose 103 82 70-90 mg/dl Test 11/19/17 00:09 11/19/17 04:06 11/19/17 07:44 11/19/17 07:45 Range/Units Bedside Glucose 123 316 290 70-90 mg/dl White Blood Count 8.43 4.8-10.8 K/uL Red Blood Count 4.56 4.2-5.4 M/uL Hemoglobin 13.5 12.0-16.0 g/dL Hematocrit 40.3 37-47 % Mean Corpuscular Volume 88.4 80-100 fL Mean Corpuscular Hemoglobin 29.6 25-34 pg Mean Corpuscular Hemoglobin Concent 33.5 32-36 g/dl Platelet Count 240 130-400 K/uL Mean Platelet Volume 10.0 7.4-10.4 fL Neutrophils (%) (Auto) 72.8 % Lymphocytes (%) (Auto) 16.7 % Monocytes (%) (Auto) 9.8 % Eosinophils (%) (Auto) 0.4 % Basophils (%) (Auto) 0.1 % Neutrophils # (Auto) 6.13 1.4-6.5 K/uL Lymphocytes # (Auto) 1.41 1.2-3.4 K/uL Monocytes # (Auto) 0.83 0.11-0.59 K/uL Eosinophils # (Auto) 0.03 0-0.5 K/uL Basophils # (Auto) 0.01 0-0.2 K/uL RDW Standard Deviation 42.0 36.4-46.3 fL RDW Coefficient of Variation 13.1 11.5-14.5 % Immature Granulocyte % (Auto) 0.2 % Immature Granulocyte # (Auto) 0.02 0.00-0.02 K/uL Activated Partial Thromboplast Time 61.9 21.0-31.0 SECONDS Partial Thromboplastin Ratio 2.4 Sodium Level 139 136-145 mmol/L Potassium Level 4.7 3.5-5.1 mmol/L Chloride Level 104 98-107 mmol/L Carbon Dioxide Level 25 21-32 mmol/L Anion Gap 10.0 3-11 mmol/L Blood Urea Nitrogen 15 7-18 mg/dl Creatinine 0.86 0.60-1.20 mg/dl Est Creatinine Clear Calc Drug Dose 53.8 ml/min Estimated GFR () 82.2 Estimated GFR (Non- 70.9 BUN/Creatinine Ratio 17.6 10-20 Random Glucose 249 70-99 mg/dl Estimated Average Glucose 160 mg/dl Hemoglobin A1c 7.2 4.5-5.6 % Calcium Level 8.9 8.5-10.1 mg/dl Total Bilirubin 0.7 0.2-1 mg/dl Aspartate Amino Transf (AST/SGOT) 31 15-37 U/L Alanine Aminotransferase (ALT/SGPT) 18 12-78 U/L Alkaline Phosphatase 57 45-117 U/L Creatine Kinase MB 14.2 0.5-3.6 ng/ml Creatine Kinase MB Ratio 0-3.0 Troponin I 0.907 0-0.045 ng/ml Total Protein 6.2 6.4-8.2 gm/dl Albumin 3.1 3.4-5.0 gm/dl Globulin 3.1 2.5-4.0 gm/dl Albumin/Globulin Ratio 1.0 0.9-2 Triglycerides Level 54 0-150 mg/dl Cholesterol Level 129 0-200 mg/dl HDL Cholesterol 72 mg/dl LDL Cholesterol, Calculated 46 mg/dl VLDL Cholesterol, Calculated 11 mg/dl Cholesterol/HDL Ratio 1.8 Hepatitis C Antibody Screen NEG NEG Test 11/19/17 09:17 11/19/17 10:02 11/19/17 11:49 11/19/17 15:08 Range/Units Bedside Glucose 304 337 125 70-90 mg/dl Creatine Kinase MB 11.0 0.5-3.6 ng/ml Creatine Kinase MB Ratio 0-3.0 Troponin I 0.656 0-0.045 ng/ml
--- NOTE | 2017-11-19 16:41 | Discharge Instructions ---
Discharge Instructions Date of Service Nov 19, 2017. Admission Reason for Admission: Altered Mental Status,Elevated Troponin Discharge Discharge Diagnosis / Problem: syncope secondary to hypoglycemia from insulin, Diabetes type I Discharge Goals Goal(s): Improve disease control Activity Recommendations Activity Limitations: per Instructions/Follow-up section . Instructions / Follow-Up Instructions / Follow-Up Echocardiogram * -- Conclusions -- * Normal LV chamber size with mild concentric LVH. * Normal LV systolic function, EF 60-65%. * No segmental left ventricular wall motion abnormalities are noted. * Grade I diastolic dysfunction. * No significant valvular pathology. Procedure Details * A complete two-dimensional transthoracic echocardiogram was performed (2D, M-mode, Doppler and color flow Doppler). Left Ventricle * The left ventricle is normal in size. * There is mild concentric left ventricular hypertrophy. * Ejection Fraction = 60-65%. * Left ventricular systolic function is normal. * No segmental left ventricular wall motion abnormalities are noted. * The left ventricular wall motion is normal. Right Ventricle * The right ventricular cavity size is normal (basal dimension <4.2 cm in right ventricular apical 4-chamber view). * The right ventricular systolic function is normal as assessed by tricuspid annular plane systolic excursion (TAPSE) (normal >1.5 cm). Atria * The left atrial size is normal. * Right atrial size is normal. * No ASD detected; PFO is not assessed. Mitral Valve * The mitral valve is normal in structure and function. Tricuspid Valve * The tricuspid valve is normal in structure and function. Aortic Valve * The aortic valve is normal in structure and function. Pulmonic Valve * The pulmonary valve is not well seen, but the Doppler examination is normal without significant regurgitation or stenosis. Great Vessels * The aortic root is normal size. Pericardium/Pleural * There is no pericardial effusion. Left Ventricular Diastolic Function * Grade I diastolic dysfunction, (abnormal relaxation pattern). Hospital Course and Discharge Plans This is a patient who presents for syncopal symptoms in the context of hypoglycemia for a patient with Type 1 Diabetes Mellitus on insulin -during hospital stay patient had her outpatient insulin reduced and became hyperglycemic to above 300s -pharmacy glycemic control assist with insulin management and patient assessed by perinatal educator -at this time blood sugar around 123 -patient reports that she understands how to modify her insulin regimen to minimize hypoglycemia or hyperglycemia -Hba1c is 7.2 On this admission patient was found to have elevated D-Dimer but CTA of the chest did not find evidence for pulmonary embolism Patient also had elevated troponins (0.195 to 0.907 peak) and was placed on heparin drip - patient did not have chest pain or shortness of breath symptoms - however patient had history of non obstructive coronary artery disease As per cardiology service Dr. Monroe, the patient's Elevated troponin secondary to metabolic abnormality in the setting of severe hypoglycemia. Dr. Monroe read the echocardiogram imaging and that the are no wall motion abnormalities on her echocardiogram and recommends that patient follow up with her outpatient film examiner for outpatient stress test for which is scheduled for but perhaps to move up the test date closer to hospital discharge Patient has good lipid profile and should continue home dose pravastatin Blood pressure was controlled. Continue Lisinopril History of Hypothyroidism -Continue Levothyroxine Discharge Instructions Please monitor your blood sugars closely while on insulin Please follow up with primary care doctor and film examiner. Recommend that patient have outpatient stress test closer to hospital discharge date Current Hospital Diet Patient's current hospital diet: Diabetes Type 2 Diet, AHA Diet (Heart Healthy) Discharge Diet Recommended Diet: AHA Diet (Heart Healthy), Diabetes Type 1 Diet Pending Studies Studies pending at discharge: no Laboratory Results 11/19/17 04:06 Red Blood Count 4.56, Mean Corpuscular Volume 88.4, Mean Corpuscular Hemoglobin 29.6, Mean Corpuscular Hemoglobin Concent 33.5, Mean Platelet Volume 10.0, Neutrophils (%) (Auto) 72.8, Lymphocytes (%) (Auto) 16.7, Monocytes (%) (Auto) 9.8, Eosinophils (%) (Auto) 0.4, Basophils (%) (Auto) 0.1, Neutrophils # (Auto) 6.13, Lymphocytes # (Auto) 1.41, Monocytes # (Auto) 0.83, Eosinophils # (Auto) 0.03, Basophils # (Auto) 0.01 11/19/17 04:06 Test 11/18/17 17:00 11/18/17 17:07 11/19/17 04:06 11/19/17 10:02 Prothrombin Time 10.5 SECONDS (9.0-12.0) Prothromb Time International Ratio 1.0 (0.9-1.1) Magnesium Level 1.9 mg/dl (1.8-2.4) Direct Bilirubin 0.1 mg/dl (0-0.2) Pro-B-Type Natriuretic Peptide 717 pg/ml (0-900) Lipase 61 U/L (73-393) Thyroid Stimulating Hormone (TSH) 1.590 uIu/ml (0.300-4.500) D-Dimer 700 ug/L FEU (0-500) White Blood Count 8.43 K/uL (4.8-10.8) Red Blood Count 4.56 M/uL (4.2-5.4) Hemoglobin 13.5 g/dL (12.0-16.0) Hematocrit 40.3 % (37-47) Mean Corpuscular Volume 88.4 fL (80-100) Mean Corpuscular Hemoglobin 29.6 pg (25-34) Mean Corpuscular Hemoglobin Concent 33.5 g/dl (32-36) Platelet Count 240 K/uL (130-400) Mean Platelet Volume 10.0 fL (7.4-10.4) Neutrophils (%) (Auto) 72.8 % Lymphocytes (%) (Auto) 16.7 % Monocytes (%) (Auto) 9.8 % Eosinophils (%) (Auto) 0.4 % Basophils (%) (Auto) 0.1 % Neutrophils # (Auto) 6.13 K/uL (1.4-6.5) Lymphocytes # (Auto) 1.41 K/uL (1.2-3.4) Monocytes # (Auto) 0.83 K/uL (0.11-0.59) Eosinophils # (Auto) 0.03 K/uL (0-0.5) Basophils # (Auto) 0.01 K/uL (0-0.2) RDW Standard Deviation 42.0 fL (36.4-46.3) RDW Coefficient of Variation 13.1 % (11.5-14.5) Immature Granulocyte % (Auto) 0.2 % Immature Granulocyte # (Auto) 0.02 K/uL (0.00-0.02) Activated Partial Thromboplast Time 61.9 SECONDS (21.0-31.0) Partial Thromboplastin Ratio 2.4 Anion Gap 10.0 mmol/L (3-11) Est Creatinine Clear Calc Drug Dose 53.8 ml/min Estimated GFR () 82.2 Estimated GFR (Non- 70.9 BUN/Creatinine Ratio 17.6 (10-20) Estimated Average Glucose 160 mg/dl Hemoglobin A1c 7.2 % (4.5-5.6) Calcium Level 8.9 mg/dl (8.5-10.1) Total Bilirubin 0.7 mg/dl (0.2-1) Aspartate Amino Transf (AST/SGOT) 31 U/L (15-37) Alanine Aminotransferase (ALT/SGPT) 18 U/L (12-78) Alkaline Phosphatase 57 U/L (45-117) Total Protein 6.2 gm/dl (6.4-8.2) Albumin 3.1 gm/dl (3.4-5.0) Globulin 3.1 gm/dl (2.5-4.0) Albumin/Globulin Ratio 1.0 (0.9-2) Triglycerides Level 54 mg/dl (0-150) Cholesterol Level 129 mg/dl (0-200) HDL Cholesterol 72 mg/dl LDL Cholesterol, Calculated 46 mg/dl VLDL Cholesterol, Calculated 11 mg/dl Cholesterol/HDL Ratio 1.8 Hepatitis C Antibody Screen NEG (NEG) Creatine Kinase MB 11.0 ng/ml (0.5-3.6) Creatine Kinase MB Ratio (0-3.0) Troponin I 0.656 ng/ml (0-0.045) Test 11/19/17 15:08 Bedside Glucose 125 mg/dl (70-90) Date/Time Source Procedure Growth Status 11/18/17 00:00 Urine , Clean Catch Urine Culture - Final THREE TYPES OF ORGANISMS PRESENT, ALL... Complete Hemoglobin A1c Test 11/19/17 04:06 Range/Units Estimated Average Glucose 160 mg/dl Hemoglobin A1c 7.2 H 4.5-5.6 % Lipid Panel Test 11/19/17 04:06 Range/Units Triglycerides Level 54 0-150 mg/dl Cholesterol Level 129 0-200 mg/dl HDL Cholesterol 72 mg/dl Cholesterol/HDL Ratio 1.8 LDL Cholesterol, Calculated 46 mg/dl Medical Emergencies . Who to Call and When: Medical Emergencies: If at any time you feel your situation is an emergency, please call 911 immediately. . Non-Emergent Contact Non-Emergency issues call your: Primary Care Provider, Hair Blender Call Non-Emergent contact if: you have any medication questions . . "Provider Documentation" section prepared by Jared Michael. .
--- NOTE | 2017-11-19 16:47 | Discharge Summary ---
Discharge Summary Date of Service Nov 19, 2017. Discharge Summary Admission Date: Nov 18, 2017 at 21:29 Discharge Date: Nov 19, 2017 Discharge Disposition: Home Principal Diagnosis: syncopal symptoms in the context of hypoglycemia for a patient with Type 1 Diabetes Mellitus on insulin elevated troponins secondary to hypoglycemia Medication Reconciliation Continued Medications: Aspirin (Aspirin EC Low Dose) 81 Mg Ectab 81 MG PO QAM for 30 Days Ezetimibe (Zetia) 10 Mg Tab 10 MG PO DAILY, TAB Insulin Detemir (Levemir) 100 Units/Ml Inj 10 UNITS SQ QAM Insulin Detemir (Levemir) 100 Units/Ml Inj 8 UNITS SQ QPM Insulin Lispro (Human) (Humalog) 100 Unit/Ml Inj 5 UNITS SQ BID UD TAKE AT BREAKFAST & SUPPER Insulin Lispro (Human) (Humalog) 100 Unit/Ml Inj 4 UNITS SQ Q LUNCH Levothyroxine Sodium (Synthroid) 50 Mcg Tab 50 MCG PO DAILYBB for 30 Days Lisinopril (Zestril) 5 Mg Tab 5 MG PO DAILY, TAB Nadolol (Corgard) 20 Mg Tab 5 MG PO PRN UD, TAB Pravastatin Sod (Pravastatin Sodium) 40 Mg Tab 80 MG PO DAILY@17 for 30 Days Admission Information HPI (per Admitting provider): CHIEF COMPLAINT: Syncope. HISTORY OF PRESENT ILLNESS: This is a 67-year-old female with past medical history significant for nonobstructive CAD, diabetes, hypertension, hyperlipidemia who was brought in because with syncope and hypoglycemic episode. The patient was mowing the grass and sat on the porch when she passed out. Her granddaughter saw her and when the EMS was brought in, her blood sugar was in 30's. After giving glucose, she woke up and she was short of breath at that time, but she is doing okay now. Denies any chest pain. No dizziness, no headaches, no blurred vision, no earache, some runny nose from sinusitis. No cough, no sore throat, no difficulty swallowing. No shortness of breath currently, was nauseous earlier but no nausea now and no abdominal pain. Normal bowel and bladder movements. Currently, resting comfortably and hemodynamically stable. ALLERGIES: No known drug allergies. PAST MEDICAL HISTORY: As mentioned above. PAST SURGICAL HISTORY: Cardiac catheterization. FAMILY HISTORY: No significant family history as per records. SOCIAL HISTORY: No smoking. . REVIEW OF SYMPTOMS: As per HPI. Rest of review of symptoms negative. MEDICATIONS AT HOME: The patient is on Humalog 4 units with lunch, 5 units with breakfast and dinner, Levemir 10 units in a.m. and 8 units in p.m., nadolol uses only when she is exerting, aspirin 81 mg p.o. daily, Zetia 10 mg p.o. daily, levothyroxine 50 mcg p.o. daily, lisinopril 5 mg p.o. daily, pravastatin 80 mg p.o. daily. Physical Exam (per Admitting): PHYSICAL EXAMINATION: GENERAL: The patient alert and oriented, not in distress. VITAL SIGNS: Temperature 36.6, pulse 67, respiratory rate 16, blood pressure 124/76, oxygen 95% room air. HEENT: No pallor, no icterus. Pupils equal, round, and react to light. NECK: No JVD, no neck masses, no carotid bruits. CARDIOVASCULAR: S1, S2 heard, regular rate and rhythm, no murmur, no gallop. RESPIRATORY SYSTEM: Normal AP diameter. No accessory muscle use. No wheezing, no crackles. ABDOMEN: Soft, bowel sounds present. Nontender. No distention. CENTRAL NERVOUS SYSTEM: Cranial nerves II-XII grossly intact. Nonfocal. EXTREMITIES: No edema, no erythema. Hospital Course Echocardiogram * -- Conclusions -- * Normal LV chamber size with mild concentric LVH. * Normal LV systolic function, EF 60-65%. * No segmental left ventricular wall motion abnormalities are noted. * Grade I diastolic dysfunction. * No significant valvular pathology. Procedure Details * A complete two-dimensional transthoracic echocardiogram was performed (2D, M-mode, Doppler and color flow Doppler). Left Ventricle * The left ventricle is normal in size. * There is mild concentric left ventricular hypertrophy. * Ejection Fraction = 60-65%. * Left ventricular systolic function is normal. * No segmental left ventricular wall motion abnormalities are noted. * The left ventricular wall motion is normal. Right Ventricle * The right ventricular cavity size is normal (basal dimension <4.2 cm in right ventricular apical 4-chamber view). * The right ventricular systolic function is normal as assessed by tricuspid annular plane systolic excursion (TAPSE) (normal >1.5 cm). Atria * The left atrial size is normal. * Right atrial size is normal. * No ASD detected; PFO is not assessed. Mitral Valve * The mitral valve is normal in structure and function. Tricuspid Valve * The tricuspid valve is normal in structure and function. Aortic Valve * The aortic valve is normal in structure and function. Pulmonic Valve * The pulmonary valve is not well seen, but the Doppler examination is normal without significant regurgitation or stenosis. Great Vessels * The aortic root is normal size. Pericardium/Pleural * There is no pericardial effusion. Left Ventricular Diastolic Function * Grade I diastolic dysfunction, (abnormal relaxation pattern). Hospital Course and Discharge Plans This is a patient who presents for syncopal symptoms in the context of hypoglycemia for a patient with Type 1 Diabetes Mellitus on insulin -during hospital stay patient had her outpatient insulin reduced and became hyperglycemic to above 300s -pharmacy glycemic control assist with insulin management and patient assessed by staff development educator -at this time blood sugar around 123 -patient reports that she understands how to modify her insulin regimen to minimize hypoglycemia or hyperglycemia -Hba1c is 7.2 On this admission patient was found to have elevated D-Dimer but CTA of the chest did not find evidence for pulmonary embolism Patient also had elevated troponins (0.195 to 0.907 peak) and was placed on heparin drip - patient did not have chest pain or shortness of breath symptoms - however patient had history of non obstructive coronary artery disease As per cardiology service Dr. Monroe, the patient's Elevated troponin secondary to metabolic abnormality in the setting of severe hypoglycemia. Dr. Monroe read the echocardiogram imaging and that the are no wall motion abnormalities on her echocardiogram and recommends that patient follow up with her outpatient electrical test technician for outpatient stress test for which is scheduled for but perhaps to move up the test date closer to hospital discharge Patient has good lipid profile and should continue home dose pravastatin Blood pressure was controlled. Continue Lisinopril History of Hypothyroidism -Continue Levothyroxine Discharge Instructions Please monitor your blood sugars closely while on insulin Please follow up with primary care doctor and electrical test technician. Recommend that patient have outpatient stress test closer to hospital discharge date Total time spent on discharge = 40 minutes This includes examination of the patient, discharge planning, medication reconciliation, and communication with other providers. Discharge Instructions see above
[2017-11-19] MEDS ORDERED: PRAVASTATIN SOD 40 MG TAB PO SCH (17:00)
[2017-11-19 17:32] VITALS: BP 115/65; PULSE 55; TEMP 36.9; O2SAT 94
== END 2017-11-19 18:10 | disposition home or self-care (01) | DRG 639 ==
LOC: EDBD 16:11 → C.EDC 16:12 → C.2T 21:29 → EDBEDREQ 21:32 → ENRESERV 22:26
PROVIDERS: ADMIT Internal Medicine; ATTEND Hospitalist
DX: E10.649 Type 1 diabetes mellitus with hypoglycemia without coma (principal); R79.1 Abnormal coagulation profile; R79.89 Other specified abnormal findings of blood chemistry; E11.65 Type 2 diabetes mellitus with hyperglycemia; I25.10 Atherosclerotic heart disease of native coronary artery without angina pectoris; I10 Essential (primary) hypertension; E78.5 Hyperlipidemia, unspecified; E03.9 Hypothyroidism, unspecified; Z79.4 Long term (current) use of insulin; Z79.82 Long term (current) use of aspirin; Z79.899 Other long term (current) drug therapy